=== PATIENT | female | born 1955 | race Caucasian/White ===

== ENCOUNTER 2017-05-02 12:11 | Inpatient (IN) | payer BC, MEDICARE ==
[~2017-05-02] VITALS: Ht 154.9 cm; Wt 103.6 kg
[~2017-05-02 12:11] MED LIST: FLUT1DIS5 IH; PARO10TA57 PO; PREG25CA PO
--- NOTE | 2017-05-02 12:14 | PHYS DOC ---
Past Medical History Past Medical History: Asthma, Fibromyalgia, Other Additional Past Medical Histor: Lupus Past Surgical History: Other Additional Past Surgical Histo: Fibroid tumors Alcohol Use: None Drug Use: None Adult General Chief Complaint Chief Complaint: ABDOMINAL PAIN HPI HPI Patient is a 61 year old female presenting to the emergency department for evaluation of abdominal pain that started 2 nights ago while she was getting her sleep study. Pain is mostly in her upper abdomen and associated with nausea and vomiting and she has not been able to hold anything down for the past several days. Patient denies any fevers chills dysuria hematuria diarrhea constipation dysuria or hematuria. She denies any prior abdominal surgeries. She says that she has known gallbladder disease but drinks alcohol infrequently. She is in no acute distress with normal vital signs. Review of Systems Review of Systems Constitutional: Denies fever or chills [] Eyes: Denies change in visual acuity, redness, or eye pain [] HENT: Denies nasal congestion or sore throat [] Respiratory: Denies cough or shortness of breath [] Cardiovascular: No additional information not addressed in HPI [] GI: + abdominal pain, nausea, vomiting. No bloody stools or diarrhea [] : Denies dysuria or hematuria [] Musculoskeletal: Denies back pain or joint pain [] Integument: Denies rash or skin lesions [] Neurologic: Denies headache, focal weakness or sensory changes [] Current Medications Current Medications Current Medications Medications (Trade) Dose Ordered Sig/Soumya Start Time Stop Time Status Last Admin Dose Admin Albuterol/ Ipratropium (Duoneb) 3 ml 1X ONCE 05/02/17 13:15 05/02/17 13:16 DC 05/02/17 13:17 3 ML Fentanyl Citrate (Fentanyl 2ml Vial) 100 mcg 1X ONCE 05/02/17 13:00 05/02/17 13:01 DC Info (Do NOT chart on this entry -- for MONITORING) 1 each PRN DAILY PRN 05/02/17 13:15 05/04/17 13:14 Iohexol (Omnipaque 300 Mg/ml) 75 ml 1X ONCE 05/02/17 13:15 05/02/17 13:16 DC Morphine Sulfate 5 mg 1X ONCE 05/02/17 12:45 05/02/17 12:45 DC Ondansetron HCl (Zofran) 8 mg 1X ONCE 05/02/17 12:45 8/3/17 12:46 DC 05/02/17 12:54 8 MG Sodium Chloride 1,000 ml @ 1,000 mls/hr 1X ONCE 05/02/17 12:45 05/02/17 13:44 05/02/17 12:54 1,000 MLS/HR Allergies Allergies Allergies Coded Allergies Type Severity Reaction Last Updated Verified codeine Allergy Unknown gi upset 05/02/17 Yes morphine Adverse Reaction Mild NAUSEA 05/02/17 Yes Physical Exam Physical Exam Constitutional: Well developed, well nourished, no acute distress, non-toxic appearance. [] HENT: Normocephalic, atraumatic, bilateral external ears normal, oropharynx moist, no oral exudates, nose normal. [] Eyes: PERRLA, EOMI, conjunctiva normal, no discharge. [] Neck: Normal range of motion, no tenderness, supple, no stridor. [] Cardiovascular:Heart rate regular rhythm, no murmur [] Lungs & Thorax: Bilateral breath sounds clear to auscultation [] Abdomen: Bowel sounds normal, soft, + diffuse upper abdominal tenderness, no rebound or guarding, no masses, no pulsatile masses. [] Skin: Warm, dry, no erythema, no rash. [] Back: No tenderness, no CVA tenderness. [] Extremities: No tenderness, no cyanosis, no clubbing, ROM intact, no edema. [] Neurologic: Alert and oriented X 3, normal motor function, normal sensory function, no focal deficits noted. [] Current Patient Data Vital Signs Vital Signs Date Time Temp Pulse Resp B/P (MAP) Pulse Ox O2 Delivery O2 Flow Rate FiO2 05/02/17 13:20 95 Nasal Cannula 3.0 05/02/17 12:25 98.8 115 22 146/97 (113) 98.8 Lab Values Laboratory Tests Test 05/02/17 12:30 05/02/17 12:32 Urine Collection Type Unknown Urine Color Alisha Urine Clarity Clear Urine pH 5.5 Urine Specific [place] >=1.030 Urine Protein 30 mg/dL (NEG-TRACE) Urine Glucose (UA) Negative mg/dL (NEG) Urine Ketones (Stick) Negative mg/dL (NEG) Urine Blood Small (NEG) Urine Nitrite Negative (NEG) Urine Bilirubin Small (NEG) Urine Urobilinogen Dipstick 0.2 mg/dL (0.2 mg/dL) Urine Leukocyte Esterase Negative (NEG) Urine RBC 3-5 /HPF (0-2) Urine WBC 0 /HPF (0-4) Urine Squamous Epithelial Cells Mod /LPF Urine Bacteria Few /HPF (0-FEW) Urine Mucus Marked /LPF Urine Opiates Screen Neg (NEG) Urine Methadone Screen Neg (NEG) Urine Barbiturates Neg (NEG) Urine Phencyclidine Screen Neg (NEG) Urine Amphetamine/Methamphetamine Neg (NEG) Urine Benzodiazepines Screen Neg (NEG) Urine Cocaine Screen Neg (NEG) Urine Cannabinoids Screen Neg (NEG) Urine Ethyl Alcohol Neg (NEG) White Blood Count 14.0 x10^3/uL (4.0-11.0) H Red Blood Count 6.02 x10^6/uL (3.50-5.40) H Hemoglobin 18.3 g/dL (12.0-15.5) H Hematocrit 53.7 % (36.0-47.0) H Mean Corpuscular Volume 89 fL (79-100) Mean Corpuscular Hemoglobin 31 pg (25-35) Mean Corpuscular Hemoglobin Concent 34 g/dL (31-37) Red Cell Distribution Width 13.6 % (11.5-14.5) Platelet Count 253 x10^3/uL (140-400) Neutrophils (%) (Auto) 80 % (31-73) H Lymphocytes (%) (Auto) 12 % (24-48) L Monocytes (%) (Auto) 8 % (0-9) Eosinophils (%) (Auto) 1 % (0-3) Basophils (%) (Auto) 0 % (0-3) Neutrophils # (Auto) 11.1 x10^3uL (1.8-7.7) H Lymphocytes # (Auto) 1.6 x10^3/uL (1.0-4.8) Monocytes # (Auto) 1.1 x10^3/uL (0.0-1.1) Eosinophils # (Auto) 0.1 x10^3/uL (0.0-0.7) Basophils # (Auto) 0.1 x10^3/uL (0.0-0.2) Prothrombin Time 13.2 SEC (11.7-14.0) Prothrombin Time INR 1.1 (0.8-1.1) PTT 26 SEC (24-38) Sodium Level 140 mmol/L (136-145) Potassium Level 3.9 mmol/L (3.5-5.1) Chloride Level 102 mmol/L (98-107) Carbon Dioxide Level 29 mmol/L (21-32) Anion Gap 9 (6-14) Blood Urea Nitrogen 12 mg/dL (7-20) Creatinine 0.8 mg/dL (0.6-1.0) Estimated GFR (Cockcroft-Gault) 72.7 BUN/Creatinine Ratio 15 (6-20) Glucose Level 171 mg/dL (70-99) H Calcium Level 9.3 mg/dL (8.5-10.1) Magnesium Level 1.9 mg/dL (1.8-2.4) Total Bilirubin 0.5 mg/dL (0.2-1.0) Aspartate Amino Transferase (AST) 12 U/L (15-37) L Alanine Aminotransferase (ALT) 22 U/L (14-59) Alkaline Phosphatase 77 U/L (46-116) Creatine Kinase 46 U/L (26-192) Troponin I Quantitative < 0.017 ng/mL (0.000-0.055) NY-Cjc-S-Type Natriuretic Peptide 115 pg/mL (0-124) Total Protein 7.6 g/dL (6.4-8.2) Albumin 3.5 g/dL (3.4-5.0) Albumin/Globulin Ratio 0.9 (1.0-1.7) L Lipase 1273 U/L (73-393) H Ethyl Alcohol Level < 10 mg/dL (0-10) Laboratory Tests 05/02/17 12:32 Laboratory Tests 05/02/17 12:32 EKG EKG Sinus tachycardia at 102 beats per minutes with normal axis no obvious ST elevation or depression and normal T waves. Radiology/Procedures Radiology/Procedures [] Course & Med Decision Making Course & Med Decision Making Patient with pancreatitis on workup which is consistent with her clinical exam. She has a CT pending at this point but she may need her gallbladder taken out but will defer imaging results. Based off how dehydrated she is not tolerating by mouth well and she will be admitted for further observation and treatment. Dragon Disclaimer Dragon Disclaimer This electronic medical record was generated, in whole or in part, using a voice recognition dictation system. Departure Departure Impression: Primary Impression: Pancreatitis Additional Impressions: Dehydration Leukocytosis Disposition: 09 ADMITTED INPATIENT Admitting Physician: Zaria Disla Condition: STABLE Referrals: NON,STAFF (PCP) Problem Qualifiers Primary Impression: Pancreatitis Chronicity: acute Pancreatitis type: biliary Acute pancreatitis complication: unspecified Qualified Codes: K85.10 - Biliary acute pancreatitis without necrosis or infection TAVO TRIMBLE DO May 02, 2017 12:14
[2017-05-02] MEDS ORDERED: ONDANSETRON PF 4 MG/2 ML VIAL. IV ONE (12:45)
[2017-05-02] MEDS ORDERED: MORPHINE SULFATE 10 MG/ML VIAL. IV ONE (12:45)
[2017-05-02] MEDS ORDERED: IV NORMAL SALINE 1000ML BAG 1,000 ML IV ONE (12:45)
[2017-05-02 12:51] LABS: BASO # 0.1 x10^3/uL (0.0-0.2); BASO % 0 % (0-3); EOS % 1 % (0-3); HEMATOCRIT 53.7 % (36.0-47.0); HEMOGLOBIN 18.3 g/dL (12.0-15.5); LYMPH # 1.6 x10^3/uL (1.0-4.8); LYMPH % 12 % (24-48); MEAN CORPUSCULAR HEMOGLOBIN 31 pg (25-35); MEAN CORPUSCULAR HGB CONC 34 g/dL (31-37); MEAN CORPUSCULAR VOLUME 89 fL (79-100); MONO % 8 % (0-9); NEUT % 80 % (31-73); PLATELET COUNT 253 x10^3/uL (140-400); RED BLOOD COUNT 6.02 x10^6/uL (3.50-5.40); RED CELL DISTRIBUTION WIDTH 13.6 % (11.5-14.5)
[2017-05-02 12:51] LABS: BILIRUBIN,URINE SMALL (NEG); GLUCOSE,URINE NEGATIVE (NEG); NITRITE,URINE NEGATIVE (NEG); PH,URINE 5.5; PROTEIN,URINE 30 mg/dL (NEG-TRACE); UROBILINOGEN,URINE 0.2 mg/dL (0.2 mg/dL)
[2017-05-02 12:52] LABS: BARBITURATES NEG (NEG); BENZODIAZEPINES NEG (NEG); CANNABINOIDS NEG (NEG); COCAINE NEG (NEG); METHADONE NEG (NEG); OPIATES NEG (NEG); PHENCYCLIDINE NEG (NEG)
[2017-05-02] MEDS: fentaNYL PF VIAL 100 MCG/2 ML VIAL IV ONE ×2 (12:54→13:00)
[2017-05-02 13:02] LABS: CALCIUM 9.3 mg/dL (8.5-10.1); CREATININE 0.8 mg/dL (0.6-1.0); GFR 72.7; POTASSIUM 3.9 mmol/L (3.5-5.1)
[2017-05-02 13:08] LABS: BACTERIA,URINE FEW /HPF (0-FEW); SQUAMOUS EPITHELIAL CELL,UR MOD /LPF; WBC,URINE 0 /HPF (0-4)
[2017-05-02 13:09] LABS: ALBUMIN 3.5 g/dL (3.4-5.0); ALBUMIN/GLOBULIN RATIO 0.9 (1.0-1.7); INR 1.1 (0.8-1.1); MAGNESIUM 1.9 mg/dL (1.8-2.4); PROTHROMBIN TIME PATIENT 13.2 SEC (11.7-14.0); TOTAL BILIRUBIN 0.5 mg/dL (0.2-1.0); TOTAL PROTEIN 7.6 g/dL (6.4-8.2)
[2017-05-02] MEDS ORDERED: IPRATRPIUM/ALBUTEROL 0.5/2.5MG 3 ML NEBU. NEB ONE (13:15)
[2017-05-02] MEDS ORDERED: CONTRAST GIVEN MC PRN (13:15)
[2017-05-02] MEDS ORDERED: IOHEXOL 300 MG/ML 75 ML VIAL IV ONE (13:15)
--- NOTE | 2017-05-02 13:43 | ACF ---
Admit Criteria Forms Admit Criteria Forms Admit Criteria Forms PANCREATITIS Clinical Indications for Admission to Inpatient Care (Place 'X' for any and all applicable criteria): Admission is indicated for 1 or more of the following (1)(2)(3)(4): [X ]I. Acute pancreatitis[A] as indicated by 2 or MORE of the following: [ X]a) Abdominal pain (eg, epigastric, left upper quadrant) [X ]b) Serum amylase or serum lipase greater than 3 times the upper limit of normal [ ]c) Characteristic findings from abdominal imaging (eg, pancreatic inflammation, pancreatic necrosis, peripancreatic fluid collection)[B] [ ]II. Pancreatitis (acute or chronic ) requiring inpatient care as indicated by 1 or more of the following [ ]a) Inability to maintain oral hydration Hypoxemia [ ]b) Evidence of infection (eg, fever, peripancreatic abscess) [ ]c) Severe pain requiring acute inpatient management [ ]d) Hemodynamic instability [ ]e) Hypoxemia [ ]f) Acute renal failure [ ]g) Severe electrolyte abnormalities Extended stay beyond goal length of stay may be needed for (1)(11) [ ]a) Severe acute pancreatitis (10)(19) [ ]b) Persistent symptoms, ascites, or pleural effusion [ ]c) Abdominal compartment syndrome (10) [ ]d) Late complications [ ]e) Gallstones in gallbladder [ ]f) Acute renal failure (27) The original [employer] content created by [employer] has been revised. The portions of the content which have been revised are identified through the use of italic text or in bold,and [facility] has neither reviewed nor approved the modified material.All other unmodified content is copyright [employer]. Please see references footnoted in the original [employer] edition 2016 RAIZA TURNER May 02, 2017 13:43
--- NOTE | 2017-05-02 14:21 | EKG ---
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
--- NOTE | 2017-05-02 14:24 | RAD ---
CT of the abdomen and pelvis with contrast, 05/02/2017: History: Upper abdominal pain, gallstones Multidetector CT imaging was performed following an IV bolus injection of iodinated contrast material. No oral contrast material was administered for this study. Numerous dense gallstones are present within the gallbladder. The gallbladder is not distended. No gallbladder wall thickening or pericholecystic edema is seen. There is no evidence of a hepatic mass or bile duct dilatation. There are multiple small calcifications in the posterior aspect of the pancreatic head. No pancreatic mass is seen. There is mild streaky increased density in the peripancreatic fat at the level the pancreatic tail, suggesting inflammation. The spleen is of normal size. No renal abnormality is detected. There is a 3.5 cm left adrenal mass. It demonstrates an internal CT number of 56 Hounsfield units on these postcontrast scans. The right adrenal gland is unremarkable. Mild aortoiliac calcific plaquing is present without evidence of aneurysm. No abdominal or pelvic adenopathy is seen. The uterus is unremarkable. The bowel loops are not dilated. A couple of small sigmoid diverticula are seen without evidence of paracolic inflammation. The appendix is visualized and shows no abnormality. No free fluid or free air is evident in the abdomen or pelvis. IMPRESSION: 1. Mild peripancreatic inflammation at the level of the pancreatic tail suggesting focal pancreatitis. 2. Pancreatic head calcifications probably due to prior pancreatitis. 3. Cholelithiasis. 4. 3.5 cm left adrenal mass. In the absence of prior studies to confirm stability, noncontrast CT follow-up or adrenal protocol MR scanning may be useful for further evaluation. PQRS Compliance Statement: One or more of the following individualized dose reduction techniques were utilized for this examination: 1. Automated exposure control 2. Adjustment of the mA and/or kV according to patient size 3. Use of iterative reconstruction technique
[2017-05-02] MEDS ORDERED: hydrALAZINE 20 MG/ML VIAL. IVP PRN (15:00)
[2017-05-02] MEDS ORDERED: ACETAMINOPHEN 325 MG TABLET. PO PRN (15:00)
[2017-05-02] MEDS ORDERED: ONDANSETRON PF 4 MG/2 ML VIAL. IV PRN (15:00)
[2017-05-02] MEDS ORDERED: DOCUSATE SODIUM 100 MG CAPSULE. PO PRN (15:00)
[2017-05-02] MEDS ORDERED: fentaNYL PF VIAL 100 MCG/2 ML VIAL IV PRN ×2 (15:00→18:30)
[2017-05-02] MEDS ORDERED: ALBUTEROL SULFATE 2.5 MG/3 ML NEBU. NEB PRN (15:00)
--- NOTE | 2017-05-02 15:04 | PDOC1 ---
History and Physical Date of Admission Date of Admission 05/02/17 Identification/Chief Complaint Chief Complaint abd pain Problems: Source Source: Chart review, Patient History of Present Illness History of Present Illness HPI HPI Patient is a 61 year old female presenting to the emergency department for evaluation of abdominal pain for 3 days. Pt knows she has cholelithiasis before, supposed to do sx but always postponed. THe pain started 2 nights ago when she got her sleep study for SALVATORE, epigastric area, constant, 8/10, with N/V, non bloody or greenish. denies fever, chills, chest pain, diarrhea. She has copd, smoker, feels more cough with sputum recently, and more sob. no home o2. Past Medical History Past Medical History copd salvatore Past Surgical History Past Surgical History Fibroid tumors Family History Family History: Hypertension Social History Smoke: 1 pack per day ALCOHOL: social Drugs: None Current Problem List Problem List Problems Medical Problems: (1) Dehydration Status: Acute (2) Leukocytosis Status: Acute Current Medications Current Medications Current Medications Medications (Trade) Dose Ordered Sig/Soumya Start Time Stop Time Status Last Admin Dose Admin Albuterol/ Ipratropium (Duoneb) 3 ml 1X ONCE 05/02/17 13:15 05/02/17 13:16 DC 05/02/17 13:17 3 ML Fentanyl Citrate (Fentanyl 2ml Vial) 100 mcg 1X ONCE 05/02/17 13:00 05/02/17 13:01 DC Info (Do NOT chart on this entry -- for MONITORING) 1 each PRN DAILY PRN 05/02/17 13:15 05/04/17 13:14 Iohexol (Omnipaque 300 Mg/ml) 75 ml 1X ONCE 05/02/17 13:15 05/02/17 13:16 DC 05/02/17 13:43 75 ML Morphine Sulfate 5 mg 1X ONCE 05/02/17 12:45 05/02/17 12:45 DC Ondansetron HCl (Zofran) 8 mg 1X ONCE 05/02/17 12:45 05/02/17 12:46 DC 05/02/17 12:54 8 MG Sodium Chloride 1,000 ml @ 1,000 mls/hr 1X ONCE 05/02/17 12:45 05/02/17 13:44 DC 05/02/17 12:54 1,000 MLS/HR Allergies Allergies Allergies Coded Allergies Type Severity Reaction Last Updated Verified codeine Allergy Unknown gi upset 05/02/17 Yes morphine Adverse Reaction Mild NAUSEA 05/02/17 Yes ROS Review of System CONSTITUTIONAL: No fever or chills EYES: No recent changes SKIN: No rash or itching CARDIOVASCULAR: No chest pain, syncope, palpitations, or edema RESPIRATORY: No SOB or cough GASTROINTESTINAL: No nausea, vomiting or abdominal pain NEUROLOGICAL: No headaches or weakness ENDOCRINE: No cold or heat intolerance GENITOURINARY: No urgency or frequency of urination MUSCULOSKELETAL: No back pain or joint pain LYMPHATICS: No enlarged lymph nodes PSYCHIATRIC: No anxiety or depression Physical Exam Physical Exam GEN.: No apparent distress. Alert and oriented. obese. HEENT: Head is normocephalic, atraumatic NECK: Supple. LUNGS: bl coarse bs with mild wheezing. HEART: RRR, S1, S2 present. Peripheral pulses intact ABDOMEN: Soft, Positive bowel sounds. obese, RUQ, epigastric area moderate tenderness, no guarding or rebound. EXTREMITIES: Without any cyanosis. NEUROLOGIC: Normal speech, normal tone PSYCHIATRIC: Normal affect, normal mood. SKIN: No ulcerations Vitals Vitals Vital Signs Date Time Temp Pulse Resp B/P (MAP) Pulse Ox O2 Delivery O2 Flow Rate FiO2 05/02/17 14:26 97 14 153/96 (115) 94 Nasal Cannula 2.0 05/02/17 12:25 98.8 98.8 Labs Labs Laboratory Tests Test 05/02/17 12:30 05/02/17 12:32 Urine Collection Type Unknown Urine Color Alisha Urine Clarity Clear Urine pH 5.5 Urine Specific [place] >=1.030 Urine Protein 30 mg/dL (NEG-TRACE) Urine Glucose (UA) Negative mg/dL (NEG) Urine Ketones (Stick) Negative mg/dL (NEG) Urine Blood Small (NEG) Urine Nitrite Negative (NEG) Urine Bilirubin Small (NEG) Urine Urobilinogen Dipstick 0.2 mg/dL (0.2 mg/dL) Urine Leukocyte Esterase Negative (NEG) Urine RBC 3-5 /HPF (0-2) Urine WBC 0 /HPF (0-4) Urine Squamous Epithelial Cells Mod /LPF Urine Bacteria Few /HPF (0-FEW) Urine Mucus Marked /LPF Urine Opiates Screen Neg (NEG) Urine Methadone Screen Neg (NEG) Urine Barbiturates Neg (NEG) Urine Phencyclidine Screen Neg (NEG) Urine Amphetamine/Methamphetamine Neg (NEG) Urine Benzodiazepines Screen Neg (NEG) Urine Cocaine Screen Neg (NEG) Urine Cannabinoids Screen Neg (NEG) Urine Ethyl Alcohol Neg (NEG) White Blood Count 14.0 x10^3/uL (4.0-11.0) Red Blood Count 6.02 x10^6/uL (3.50-5.40) Hemoglobin 18.3 g/dL (12.0-15.5) Hematocrit 53.7 % (36.0-47.0) Mean Corpuscular Volume 89 fL (79-100) Mean Corpuscular Hemoglobin 31 pg (25-35) Mean Corpuscular Hemoglobin Concent 34 g/dL (31-37) Red Cell Distribution Width 13.6 % (11.5-14.5) Platelet Count 253 x10^3/uL (140-400) Neutrophils (%) (Auto) 80 % (31-73) Lymphocytes (%) (Auto) 12 % (24-48) Monocytes (%) (Auto) 8 % (0-9) Eosinophils (%) (Auto) 1 % (0-3) Basophils (%) (Auto) 0 % (0-3) Neutrophils # (Auto) 11.1 x10^3uL (1.8-7.7) Lymphocytes # (Auto) 1.6 x10^3/uL (1.0-4.8) Monocytes # (Auto) 1.1 x10^3/uL (0.0-1.1) Eosinophils # (Auto) 0.1 x10^3/uL (0.0-0.7) Basophils # (Auto) 0.1 x10^3/uL (0.0-0.2) Prothrombin Time 13.2 SEC (11.7-14.0) Prothromb Time International Ratio 1.1 (0.8-1.1) Activated Partial Thromboplast Time 26 SEC (24-38) Sodium Level 140 mmol/L (136-145) Potassium Level 3.9 mmol/L (3.5-5.1) Chloride Level 102 mmol/L (98-107) Carbon Dioxide Level 29 mmol/L (21-32) Anion Gap 9 (6-14) Blood Urea Nitrogen 12 mg/dL (7-20) Creatinine 0.8 mg/dL (0.6-1.0) Estimated GFR (Cockcroft-Gault) 72.7 BUN/Creatinine Ratio 15 (6-20) Glucose Level 171 mg/dL (70-99) Calcium Level 9.3 mg/dL (8.5-10.1) Magnesium Level 1.9 mg/dL (1.8-2.4) Total Bilirubin 0.5 mg/dL (0.2-1.0) Aspartate Amino Transf (AST/SGOT) 12 U/L (15-37) Alanine Aminotransferase (ALT/SGPT) 22 U/L (14-59) Alkaline Phosphatase 77 U/L (46-116) Creatine Kinase 46 U/L (26-192) Troponin I Quantitative < 0.017 ng/mL (0.000-0.055) QI-Flc-U-Type Natriuretic Peptide 115 pg/mL (0-124) Total Protein 7.6 g/dL (6.4-8.2) Albumin 3.5 g/dL (3.4-5.0) Albumin/Globulin Ratio 0.9 (1.0-1.7) Lipase 1273 U/L (73-393) Ethyl Alcohol Level < 10 mg/dL (0-10) Laboratory Tests Test 05/02/17 12:30 05/02/17 12:32 Urine Collection Type Unknown Urine Color Alisha Urine Clarity Clear Urine pH 5.5 Urine Specific [place] >=1.030 Urine Protein 30 mg/dL (NEG-TRACE) Urine Glucose (UA) Negative mg/dL (NEG) Urine Ketones (Stick) Negative mg/dL (NEG) Urine Blood Small (NEG) Urine Nitrite Negative (NEG) Urine Bilirubin Small (NEG) Urine Urobilinogen Dipstick 0.2 mg/dL (0.2 mg/dL) Urine Leukocyte Esterase Negative (NEG) Urine RBC 3-5 /HPF (0-2) Urine WBC 0 /HPF (0-4) Urine Squamous Epithelial Cells Mod /LPF Urine Bacteria Few /HPF (0-FEW) Urine Mucus Marked /LPF Urine Opiates Screen Neg (NEG) Urine Methadone Screen Neg (NEG) Urine Barbiturates Neg (NEG) Urine Phencyclidine Screen Neg (NEG) Urine Amphetamine/Methamphetamine Neg (NEG) Urine Benzodiazepines Screen Neg (NEG) Urine Cocaine Screen Neg (NEG) Urine Cannabinoids Screen Neg (NEG) Urine Ethyl Alcohol Neg (NEG) White Blood Count 14.0 x10^3/uL (4.0-11.0) Red Blood Count 6.02 x10^6/uL (3.50-5.40) Hemoglobin 18.3 g/dL (12.0-15.5) Hematocrit 53.7 % (36.0-47.0) Mean Corpuscular Volume 89 fL (79-100) Mean Corpuscular Hemoglobin 31 pg (25-35) Mean Corpuscular Hemoglobin Concent 34 g/dL (31-37) Red Cell Distribution Width 13.6 % (11.5-14.5) Platelet Count 253 x10^3/uL (140-400) Neutrophils (%) (Auto) 80 % (31-73) Lymphocytes (%) (Auto) 12 % (24-48) Monocytes (%) (Auto) 8 % (0-9) Eosinophils (%) (Auto) 1 % (0-3) Basophils (%) (Auto) 0 % (0-3) Neutrophils # (Auto) 11.1 x10^3uL (1.8-7.7) Lymphocytes # (Auto) 1.6 x10^3/uL (1.0-4.8) Monocytes # (Auto) 1.1 x10^3/uL (0.0-1.1) Eosinophils # (Auto) 0.1 x10^3/uL (0.0-0.7) Basophils # (Auto) 0.1 x10^3/uL (0.0-0.2) Prothrombin Time 13.2 SEC (11.7-14.0) Prothromb Time International Ratio 1.1 (0.8-1.1) Activated Partial Thromboplast Time 26 SEC (24-38) Sodium Level 140 mmol/L (136-145) Potassium Level 3.9 mmol/L (3.5-5.1) Chloride Level 102 mmol/L (98-107) Carbon Dioxide Level 29 mmol/L (21-32) Anion Gap 9 (6-14) Blood Urea Nitrogen 12 mg/dL (7-20) Creatinine 0.8 mg/dL (0.6-1.0) Estimated GFR (Cockcroft-Gault) 72.7 BUN/Creatinine Ratio 15 (6-20) Glucose Level 171 mg/dL (70-99) Calcium Level 9.3 mg/dL (8.5-10.1) Magnesium Level 1.9 mg/dL (1.8-2.4) Total Bilirubin 0.5 mg/dL (0.2-1.0) Aspartate Amino Transf (AST/SGOT) 12 U/L (15-37) Alanine Aminotransferase (ALT/SGPT) 22 U/L (14-59) Alkaline Phosphatase 77 U/L (46-116) Creatine Kinase 46 U/L (26-192) Troponin I Quantitative < 0.017 ng/mL (0.000-0.055) NA-Rnv-B-Type Natriuretic Peptide 115 pg/mL (0-124) Total Protein 7.6 g/dL (6.4-8.2) Albumin 3.5 g/dL (3.4-5.0) Albumin/Globulin Ratio 0.9 (1.0-1.7) Lipase 1273 U/L (73-393) Ethyl Alcohol Level < 10 mg/dL (0-10) VTE Prophylaxis Ordered VTE Prophylaxis Devices: Yes VTE Pharmacological Prophylaxi: Yes Assessment/Plan Assessment/Plan abd pain with acute pancreatitis 2/2 cholelithiasis likely cholelithiasis copd exacerbatin fibromyalgia morbid obesity leukocytosis with dehydration acute resp failure with copd, salvatore 3.5cm left adrenal mass on ct plan; gi , sx , pulm consult npo ivf ok to take po meds cont home meds duoneb, albuterol prn, doxy bid, NC as needed. lipase daily may need sx eventually pain control dvt, gi ppx SULAIMAN RODRIGUEZ MD May 02, 2017 15:04
[2017-05-02 15:15] VITALS: BP 129/72
[2017-05-02] MEDS ORDERED: PREGABALIN 25 MG CAPSULE PO SCH (15:15)
[2017-05-02] MEDS ORDERED: HYDR-2766 PO (15:26)
[2017-05-02] MEDS: IV NORMAL SALINE 1000ML BAG 1,000 ML IV SCH (15:31)
[2017-05-02] MEDS: IPRATRPIUM/ALBUTEROL 0.5/2.5MG 3 ML NEBU. NEB SCH ×2 (15:58→19:16)
--- NOTE | 2017-05-02 17:19 | PDOC2 ---
CONSULT Date of Consult Date of Consult DATE: 05/02/17 TIME: 17:12 Reason for Consult Reason for Consult: Pancreatitis Referring Physician Referring Physician: Naif Identification/Chief Complaint Chief Complaint Abdominal pain Problems: Source Source: Patient History of Present Illness Reason for Visit: 61 yo female with 3 days of abdominal pain with nausea, worse after eating. No vomiting. Has had a similar episode in the past but this is worse. Past Medical History Cardiovascular: HTN Pulmonary: COPD GI: GERD Heme/Onc: No pertinent hx Hepatobiliary: Cholelithiasis Psych: No pertinent hx Musculoskeletal: low back pain Rheumatologic: No pertinent hx Infectious disease: No pertinent hx ENT: No pertinent hx Renal/: No pertinent hx Endocrine: No pertinent hx Dermatology: No pertinent hx Past Surgical History Past Surgical History: No pertinent history Family History Family History: No Significant, Hypertension Social History 1 pack per day ALCOHOL: social Drugs: None Current Problem List Problem List Problems Medical Problems: (1) Dehydration Status: Acute (2) Leukocytosis Status: Acute Current Medications Current Medications Current Medications Ondansetron HCl (Zofran) 8 mg 1X ONCE IV Last administered on 05/02/17 12:54; Start 05/02/17 at 12:45; Stop 05/02/17 at 12:46; Status DC Sodium Chloride 1,000 ml @ 1,000 mls/hr 1X ONCE IV Last administered on 12:54; Start 05/02/17 at 12:45; Stop 05/02/17 at 13:44; Status DC Morphine Sulfate 5 mg 1X ONCE IV ; Start 05/02/17 at 12:45; Stop 05/02/17 at 12: 45; Status DC Albuterol/ Ipratropium (Duoneb) 3 ml 1X ONCE NEB Last administered on 13:17; Start 05/02/17 at 13:15; Stop 05/02/17 at 13:16; Status DC Fentanyl Citrate (Fentanyl 2ml Vial) 100 mcg 1X ONCE IV ; Start 05/02/17 at 13: 00; Stop 05/02/17 at 13:01; Status DC Iohexol (Omnipaque 300 Mg/ml) 75 ml 1X ONCE IV Last administered on 05/02/17 13:43; Start 05/02/17 at 13:15; Stop 05/02/17 at 13:16; Status DC Info (Do NOT chart on this entry -- for MONITORING) 1 each PRN DAILY PRN MC SEE COMMENTS; Start 05/02/17 at 13:15; Stop 05/04/17 at 13:14 Paroxetine HCl (Paxil) 10 mg DAILY PO ; Start 05/02/17 at 16:00 Pregabalin (Lyrica) 25 mg TID PO ; Start 05/02/17 at 15:15 Acetaminophen (Tylenol) 650 mg PRN Q6HRS PRN PO FEVER; Start 05/02/17 at 15:00 Ondansetron HCl (Zofran) 4 mg PRN Q6HRS PRN IV NAUSEA/VOMITING Last administered on 05/02/17 15:31; Start 05/02/17 at 15:00 Hydralazine HCl (Apresoline) 10 mg PRN Q4HRS PRN IVP ELEVATED BP, SEE COMMENTS ; Start 05/02/17 at 15:00 Docusate Sodium (Colace) 100 mg PRN DAILY PRN PO CONSTIPATION; Start 05/02/17 at 15:00 Fentanyl Citrate (Fentanyl 2ml Vial) 50 mcg PRN Q2HR PRN IV PAIN Last administered on 05/02/17 15:31; Start 05/02/17 at 15:00 Sodium Chloride 1,000 ml @ 150 mls/hr Q6H40M IV Last administered on 05/02/17 15:31; Start 05/02/17 at 15:00 Albuterol/ Ipratropium (Duoneb) 3 ml RTQID NEB Last administered on 05/02/17 15 :58; Start 05/02/17 at 16:00 Albuterol Sulfate (Ventolin Neb Soln) 2.5 mg PRN Q2HR PRN NEB SHORTNESS OF BREATH; Start 05/02/17 at 15:00 Guaifenesin (Mucinex) 600 mg BID PO ; Start 05/02/17 at 21:00 Doxycycline Hyclate 100 mg/ Dextrose 100 ml @ 50 mls/hr Q12HR IV ; Start at 16:00 Heparin Sodium (Porcine) (Heparin Sq) 5,000 unit Q8HRS SQ ; Start 05/02/17 at 15: 15 Famotidine (Pepcid) 20 mg QHS IVP ; Start 05/02/17 at 21:00 Active Scripts Active Reported Hydrocodone-Apap 10-325 (Hydrocodone Bit/Acetaminophen) 1 Each Tablet 1 Tab PO PRN Q6HRS PRN Advair 500-50 Diskus (Fluticasone/Salmeterol) 1 Each Disk.w.dev 1 Each IH Lyrica (Pregabalin) 25 Mg Capsule 25 Mg PO Paxil (Paroxetine Hcl) 10 Mg Tablet 10 Mg PO Allergies Allergies: Coded Allergies: codeine (Verified Allergy, Unknown, gi upset, 05/02/17) morphine (Verified Adverse Reaction, Mild, NAUSEA, 05/02/17) ROS Gastrointestinal: Yes Nausea, Yes Abdominal Pain Physical Exam General: Alert, Oriented X3, Cooperative, moderate distress HEENT: Atraumatic, PERRLA, EOMI Lungs: Clear to auscultation, Normal air movement Heart: Regular rate, No murmurs Abdomen: Normal bowel sounds, Soft, Other (TTP Epigastrium) Extremities: No edema Skin: No significant lesion Neuro: Normal speech Psych/Mental Status: Mental status NL Vitals VITALS Vital Signs Date Time Temp Pulse Resp B/P (MAP) Pulse Ox O2 Delivery O2 Flow Rate FiO2 05/02/17 15:59 86 Room Air 05/02/17 15:31 3.0 05/02/17 15:15 98.4 81 20 129/72 (91) 98.4 Labs Labs Laboratory Tests Test 05/02/17 12:30 05/02/17 12:32 Urine Collection Type Unknown Urine Color Alisha Urine Clarity Clear Urine pH 5.5 Urine Specific Tabiona >=1.030 Urine Protein 30 mg/dL (NEG-TRACE) Urine Glucose (UA) Negative mg/dL (NEG) Urine Ketones (Stick) Negative mg/dL (NEG) Urine Blood Small (NEG) Urine Nitrite Negative (NEG) Urine Bilirubin Small (NEG) Urine Urobilinogen Dipstick 0.2 mg/dL (0.2 mg/dL) Urine Leukocyte Esterase Negative (NEG) Urine RBC 3-5 /HPF (0-2) Urine WBC 0 /HPF (0-4) Urine Squamous Epithelial Cells Mod /LPF Urine Bacteria Few /HPF (0-FEW) Urine Mucus Marked /LPF Urine Opiates Screen Neg (NEG) Urine Methadone Screen Neg (NEG) Urine Barbiturates Neg (NEG) Urine Phencyclidine Screen Neg (NEG) Urine Amphetamine/Methamphetamine Neg (NEG) Urine Benzodiazepines Screen Neg (NEG) Urine Cocaine Screen Neg (NEG) Urine Cannabinoids Screen Neg (NEG) Urine Ethyl Alcohol Neg (NEG) White Blood Count 14.0 x10^3/uL (4.0-11.0) Red Blood Count 6.02 x10^6/uL (3.50-5.40) Hemoglobin 18.3 g/dL (12.0-15.5) Hematocrit 53.7 % (36.0-47.0) Mean Corpuscular Volume 89 fL (79-100) Mean Corpuscular Hemoglobin 31 pg (25-35) Mean Corpuscular Hemoglobin Concent 34 g/dL (31-37) Red Cell Distribution Width 13.6 % (11.5-14.5) Platelet Count 253 x10^3/uL (140-400) Neutrophils (%) (Auto) 80 % (31-73) Lymphocytes (%) (Auto) 12 % (24-48) Monocytes (%) (Auto) 8 % (0-9) Eosinophils (%) (Auto) 1 % (0-3) Basophils (%) (Auto) 0 % (0-3) Neutrophils # (Auto) 11.1 x10^3uL (1.8-7.7) Lymphocytes # (Auto) 1.6 x10^3/uL (1.0-4.8) Monocytes # (Auto) 1.1 x10^3/uL (0.0-1.1) Eosinophils # (Auto) 0.1 x10^3/uL (0.0-0.7) Basophils # (Auto) 0.1 x10^3/uL (0.0-0.2) Prothrombin Time 13.2 SEC (11.7-14.0) Prothromb Time International Ratio 1.1 (0.8-1.1) Activated Partial Thromboplast Time 26 SEC (24-38) Sodium Level 140 mmol/L (136-145) Potassium Level 3.9 mmol/L (3.5-5.1) Chloride Level 102 mmol/L (98-107) Carbon Dioxide Level 29 mmol/L (21-32) Anion Gap 9 (6-14) Blood Urea Nitrogen 12 mg/dL (7-20) Creatinine 0.8 mg/dL (0.6-1.0) Estimated GFR (Cockcroft-Gault) 72.7 BUN/Creatinine Ratio 15 (6-20) Glucose Level 171 mg/dL (70-99) Calcium Level 9.3 mg/dL (8.5-10.1) Magnesium Level 1.9 mg/dL (1.8-2.4) Total Bilirubin 0.5 mg/dL (0.2-1.0) Aspartate Amino Transf (AST/SGOT) 12 U/L (15-37) Alanine Aminotransferase (ALT/SGPT) 22 U/L (14-59) Alkaline Phosphatase 77 U/L (46-116) Creatine Kinase 46 U/L (26-192) Troponin I Quantitative < 0.017 ng/mL (0.000-0.055) XM-Slu-T-Type Natriuretic Peptide 115 pg/mL (0-124) Total Protein 7.6 g/dL (6.4-8.2) Albumin 3.5 g/dL (3.4-5.0) Albumin/Globulin Ratio 0.9 (1.0-1.7) Lipase 1273 U/L (73-393) Ethyl Alcohol Level < 10 mg/dL (0-10) Laboratory Tests Test 05/02/17 12:30 05/02/17 12:32 Urine Collection Type Unknown Urine Color Alisha Urine Clarity Clear Urine pH 5.5 Urine Specific Tabiona >=1.030 Urine Protein 30 mg/dL (NEG-TRACE) Urine Glucose (UA) Negative mg/dL (NEG) Urine Ketones (Stick) Negative mg/dL (NEG) Urine Blood Small (NEG) Urine Nitrite Negative (NEG) Urine Bilirubin Small (NEG) Urine Urobilinogen Dipstick 0.2 mg/dL (0.2 mg/dL) Urine Leukocyte Esterase Negative (NEG) Urine RBC 3-5 /HPF (0-2) Urine WBC 0 /HPF (0-4) Urine Squamous Epithelial Cells Mod /LPF Urine Bacteria Few /HPF (0-FEW) Urine Mucus Marked /LPF Urine Opiates Screen Neg (NEG) Urine Methadone Screen Neg (NEG) Urine Barbiturates Neg (NEG) Urine Phencyclidine Screen Neg (NEG) Urine Amphetamine/Methamphetamine Neg (NEG) Urine Benzodiazepines Screen Neg (NEG) Urine Cocaine Screen Neg (NEG) Urine Cannabinoids Screen Neg (NEG) Urine Ethyl Alcohol Neg (NEG) White Blood Count 14.0 x10^3/uL (4.0-11.0) Red Blood Count 6.02 x10^6/uL (3.50-5.40) Hemoglobin 18.3 g/dL (12.0-15.5) Hematocrit 53.7 % (36.0-47.0) Mean Corpuscular Volume 89 fL (79-100) Mean Corpuscular Hemoglobin 31 pg (25-35) Mean Corpuscular Hemoglobin Concent 34 g/dL (31-37) Red Cell Distribution Width 13.6 % (11.5-14.5) Platelet Count 253 x10^3/uL (140-400) Neutrophils (%) (Auto) 80 % (31-73) Lymphocytes (%) (Auto) 12 % (24-48) Monocytes (%) (Auto) 8 % (0-9) Eosinophils (%) (Auto) 1 % (0-3) Basophils (%) (Auto) 0 % (0-3) Neutrophils # (Auto) 11.1 x10^3uL (1.8-7.7) Lymphocytes # (Auto) 1.6 x10^3/uL (1.0-4.8) Monocytes # (Auto) 1.1 x10^3/uL (0.0-1.1) Eosinophils # (Auto) 0.1 x10^3/uL (0.0-0.7) Basophils # (Auto) 0.1 x10^3/uL (0.0-0.2) Prothrombin Time 13.2 SEC (11.7-14.0) Prothromb Time International Ratio 1.1 (0.8-1.1) Activated Partial Thromboplast Time 26 SEC (24-38) Sodium Level 140 mmol/L (136-145) Potassium Level 3.9 mmol/L (3.5-5.1) Chloride Level 102 mmol/L (98-107) Carbon Dioxide Level 29 mmol/L (21-32) Anion Gap 9 (6-14) Blood Urea Nitrogen 12 mg/dL (7-20) Creatinine 0.8 mg/dL (0.6-1.0) Estimated GFR (Cockcroft-Gault) 72.7 BUN/Creatinine Ratio 15 (6-20) Glucose Level 171 mg/dL (70-99) Calcium Level 9.3 mg/dL (8.5-10.1) Magnesium Level 1.9 mg/dL (1.8-2.4) Total Bilirubin 0.5 mg/dL (0.2-1.0) Aspartate Amino Transf (AST/SGOT) 12 U/L (15-37) Alanine Aminotransferase (ALT/SGPT) 22 U/L (14-59) Alkaline Phosphatase 77 U/L (46-116) Creatine Kinase 46 U/L (26-192) Troponin I Quantitative < 0.017 ng/mL (0.000-0.055) KD-Ebe-T-Type Natriuretic Peptide 115 pg/mL (0-124) Total Protein 7.6 g/dL (6.4-8.2) Albumin 3.5 g/dL (3.4-5.0) Albumin/Globulin Ratio 0.9 (1.0-1.7) Lipase 1273 U/L (73-393) Ethyl Alcohol Level < 10 mg/dL (0-10) Images Images CT shows gallstones and inflammation around the tail of the pancreas Assessment/Plan Assessment/Plan Pancreatitis, likely gallstone related Recommend conservative tx of pancreatitis until resolved the L/S Cholecystectomy F/U on labs tomorrow MELINA ALVES MD May 02, 2017 17:19
[2017-05-02] MEDS: PARoxetine 10 MG TABLET PO SCH (17:33)
[2017-05-02] MEDS: DOXYCYCLINE HYCLATE 100 MG in IV DEXTROSE 5% 100 ML IV SCH (17:34)
[2017-05-02] MEDS: HEPARIN PF for SUB-Q USE 5,000 UNIT/0.5 ML VIAL. SQ SCH ×2 (17:45→21:40)
--- NOTE | 2017-05-02 17:48 | PDOC2 ---
CONSULT Date of Consult Date of Consult DATE: 05/02/17 TIME: 17:47 Reason for Consult Reason for Consult: Abd pain/pancreatitis Past Medical History Cardiovascular: HTN Pulmonary: COPD GI: GERD Heme/Onc: No pertinent hx Hepatobiliary: Cholelithiasis Psych: No pertinent hx Musculoskeletal: low back pain Rheumatologic: No pertinent hx Infectious disease: No pertinent hx ENT: No pertinent hx Renal/: No pertinent hx Endocrine: No pertinent hx Dermatology: No pertinent hx Past Surgical History Past Surgical History: No pertinent history Family History Family History: No Significant, Hypertension Social History 1 pack per day ALCOHOL: social Drugs: None Current Problem List Problem List Problems Medical Problems: (1) Dehydration Status: Acute (2) Leukocytosis Status: Acute Current Medications Current Medications Current Medications Ondansetron HCl (Zofran) 8 mg 1X ONCE IV Last administered on 05/02/17 12:54; Start 05/02/17 at 12:45; Stop 05/02/17 at 12:46; Status DC Sodium Chloride 1,000 ml @ 1,000 mls/hr 1X ONCE IV Last administered on 12:54; Start 05/02/17 at 12:45; Stop 05/02/17 at 13:44; Status DC Morphine Sulfate 5 mg 1X ONCE IV ; Start 05/02/17 at 12:45; Stop 05/02/17 at 12: 45; Status DC Albuterol/ Ipratropium (Duoneb) 3 ml 1X ONCE NEB Last administered on 13:17; Start 05/02/17 at 13:15; Stop 05/02/17 at 13:16; Status DC Fentanyl Citrate (Fentanyl 2ml Vial) 100 mcg 1X ONCE IV ; Start 05/02/17 at 13: 00; Stop 05/02/17 at 13:01; Status DC Iohexol (Omnipaque 300 Mg/ml) 75 ml 1X ONCE IV Last administered on 05/02/17 13:43; Start 05/02/17 at 13:15; Stop 05/02/17 at 13:16; Status DC Info (Do NOT chart on this entry -- for MONITORING) 1 each PRN DAILY PRN MC SEE COMMENTS; Start 05/02/17 at 13:15; Stop 05/04/17 at 13:14 Paroxetine HCl (Paxil) 10 mg DAILY PO ; Start 05/02/17 at 16:00 Pregabalin (Lyrica) 25 mg TID PO ; Start 05/02/17 at 15:15; Stop 05/02/17 at 17:27 ; Status DC Acetaminophen (Tylenol) 650 mg PRN Q6HRS PRN PO FEVER; Start 05/02/17 at 15:00 Ondansetron HCl (Zofran) 4 mg PRN Q6HRS PRN IV NAUSEA/VOMITING Last administered on 05/02/17 15:31; Start 05/02/17 at 15:00 Hydralazine HCl (Apresoline) 10 mg PRN Q4HRS PRN IVP ELEVATED BP, SEE COMMENTS ; Start 05/02/17 at 15:00 Docusate Sodium (Colace) 100 mg PRN DAILY PRN PO CONSTIPATION; Start 05/02/17 at 15:00 Fentanyl Citrate (Fentanyl 2ml Vial) 50 mcg PRN Q2HR PRN IV PAIN Last administered on 05/02/17 15:31; Start 05/02/17 at 15:00 Sodium Chloride 1,000 ml @ 150 mls/hr Q6H40M IV Last administered on 05/02/17 15:31; Start 05/02/17 at 15:00 Albuterol/ Ipratropium (Duoneb) 3 ml RTQID NEB Last administered on 05/02/17 15 :58; Start 05/02/17 at 16:00 Albuterol Sulfate (Ventolin Neb Soln) 2.5 mg PRN Q2HR PRN NEB SHORTNESS OF BREATH; Start 05/02/17 at 15:00 Guaifenesin (Mucinex) 600 mg BID PO ; Start 05/02/17 at 21:00 Doxycycline Hyclate 100 mg/ Dextrose 100 ml @ 50 mls/hr Q12HR IV ; Start at 16:00 Heparin Sodium (Porcine) (Heparin Sq) 5,000 unit Q8HRS SQ ; Start 05/02/17 at 15: 15 Famotidine (Pepcid) 20 mg QHS IVP ; Start 05/02/17 at 21:00 Active Scripts Active Reported Hydrocodone-Apap 10-325 (Hydrocodone Bit/Acetaminophen) 1 Each Tablet 1 Tab PO PRN Q6HRS PRN Advair 500-50 Diskus (Fluticasone/Salmeterol) 1 Each Disk.w.dev 1 Each IH Paxil (Paroxetine Hcl) 10 Mg Tablet 10 Mg PO Allergies Allergies: Coded Allergies: codeine (Verified Allergy, Unknown, gi upset, 05/02/17) morphine (Verified Adverse Reaction, Mild, NAUSEA, 05/02/17) Vitals VITALS Vital Signs Date Time Temp Pulse Resp B/P (MAP) Pulse Ox O2 Delivery O2 Flow Rate FiO2 05/02/17 16:00 Nasal Cannula 3.0 05/02/17 15:59 86 05/02/17 15:15 98.4 81 20 129/72 (91) 98.4 Labs Labs Laboratory Tests Test 05/02/17 12:30 05/02/17 12:32 05/02/17 17:31 Urine Collection Type Unknown Urine Color Alisha Urine Clarity Clear Urine pH 5.5 Urine Specific Coulters >=1.030 Urine Protein 30 mg/dL (NEG-TRACE) Urine Glucose (UA) Negative mg/dL (NEG) Urine Ketones (Stick) Negative mg/dL (NEG) Urine Blood Small (NEG) Urine Nitrite Negative (NEG) Urine Bilirubin Small (NEG) Urine Urobilinogen Dipstick 0.2 mg/dL (0.2 mg/dL) Urine Leukocyte Esterase Negative (NEG) Urine RBC 3-5 /HPF (0-2) Urine WBC 0 /HPF (0-4) Urine Squamous Epithelial Cells Mod /LPF Urine Bacteria Few /HPF (0-FEW) Urine Mucus Marked /LPF Urine Opiates Screen Neg (NEG) Urine Methadone Screen Neg (NEG) Urine Barbiturates Neg (NEG) Urine Phencyclidine Screen Neg (NEG) Urine Amphetamine/Methamphetamine Neg (NEG) Urine Benzodiazepines Screen Neg (NEG) Urine Cocaine Screen Neg (NEG) Urine Cannabinoids Screen Neg (NEG) Urine Ethyl Alcohol Neg (NEG) White Blood Count 14.0 x10^3/uL (4.0-11.0) Red Blood Count 6.02 x10^6/uL (3.50-5.40) Hemoglobin 18.3 g/dL (12.0-15.5) Hematocrit 53.7 % (36.0-47.0) Mean Corpuscular Volume 89 fL (79-100) Mean Corpuscular Hemoglobin 31 pg (25-35) Mean Corpuscular Hemoglobin Concent 34 g/dL (31-37) Red Cell Distribution Width 13.6 % (11.5-14.5) Platelet Count 253 x10^3/uL (140-400) Neutrophils (%) (Auto) 80 % (31-73) Lymphocytes (%) (Auto) 12 % (24-48) Monocytes (%) (Auto) 8 % (0-9) Eosinophils (%) (Auto) 1 % (0-3) Basophils (%) (Auto) 0 % (0-3) Neutrophils # (Auto) 11.1 x10^3uL (1.8-7.7) Lymphocytes # (Auto) 1.6 x10^3/uL (1.0-4.8) Monocytes # (Auto) 1.1 x10^3/uL (0.0-1.1) Eosinophils # (Auto) 0.1 x10^3/uL (0.0-0.7) Basophils # (Auto) 0.1 x10^3/uL (0.0-0.2) Prothrombin Time 13.2 SEC (11.7-14.0) Prothromb Time International Ratio 1.1 (0.8-1.1) Activated Partial Thromboplast Time 26 SEC (24-38) Sodium Level 140 mmol/L (136-145) Potassium Level 3.9 mmol/L (3.5-5.1) Chloride Level 102 mmol/L (98-107) Carbon Dioxide Level 29 mmol/L (21-32) Anion Gap 9 (6-14) Blood Urea Nitrogen 12 mg/dL (7-20) Creatinine 0.8 mg/dL (0.6-1.0) Estimated GFR (Cockcroft-Gault) 72.7 BUN/Creatinine Ratio 15 (6-20) Glucose Level 171 mg/dL (70-99) Calcium Level 9.3 mg/dL (8.5-10.1) Magnesium Level 1.9 mg/dL (1.8-2.4) Total Bilirubin 0.5 mg/dL (0.2-1.0) Aspartate Amino Transf (AST/SGOT) 12 U/L (15-37) Alanine Aminotransferase (ALT/SGPT) 22 U/L (14-59) Alkaline Phosphatase 77 U/L (46-116) Creatine Kinase 46 U/L (26-192) Troponin I Quantitative < 0.017 ng/mL (0.000-0.055) BQ-Fce-B-Type Natriuretic Peptide 115 pg/mL (0-124) Total Protein 7.6 g/dL (6.4-8.2) Albumin 3.5 g/dL (3.4-5.0) Albumin/Globulin Ratio 0.9 (1.0-1.7) Lipase 1273 U/L (73-393) Ethyl Alcohol Level < 10 mg/dL (0-10) Glucose (Fingerstick) 150 mg/dL (70-99) Laboratory Tests Test 05/02/17 12:30 05/02/17 12:32 05/02/17 17:31 Urine Collection Type Unknown Urine Color Alisha Urine Clarity Clear Urine pH 5.5 Urine Specific Coulters >=1.030 Urine Protein 30 mg/dL (NEG-TRACE) Urine Glucose (UA) Negative mg/dL (NEG) Urine Ketones (Stick) Negative mg/dL (NEG) Urine Blood Small (NEG) Urine Nitrite Negative (NEG) Urine Bilirubin Small (NEG) Urine Urobilinogen Dipstick 0.2 mg/dL (0.2 mg/dL) Urine Leukocyte Esterase Negative (NEG) Urine RBC 3-5 /HPF (0-2) Urine WBC 0 /HPF (0-4) Urine Squamous Epithelial Cells Mod /LPF Urine Bacteria Few /HPF (0-FEW) Urine Mucus Marked /LPF Urine Opiates Screen Neg (NEG) Urine Methadone Screen Neg (NEG) Urine Barbiturates Neg (NEG) Urine Phencyclidine Screen Neg (NEG) Urine Amphetamine/Methamphetamine Neg (NEG) Urine Benzodiazepines Screen Neg (NEG) Urine Cocaine Screen Neg (NEG) Urine Cannabinoids Screen Neg (NEG) Urine Ethyl Alcohol Neg (NEG) White Blood Count 14.0 x10^3/uL (4.0-11.0) Red Blood Count 6.02 x10^6/uL (3.50-5.40) Hemoglobin 18.3 g/dL (12.0-15.5) Hematocrit 53.7 % (36.0-47.0) Mean Corpuscular Volume 89 fL (79-100) Mean Corpuscular Hemoglobin 31 pg (25-35) Mean Corpuscular Hemoglobin Concent 34 g/dL (31-37) Red Cell Distribution Width 13.6 % (11.5-14.5) Platelet Count 253 x10^3/uL (140-400) Neutrophils (%) (Auto) 80 % (31-73) Lymphocytes (%) (Auto) 12 % (24-48) Monocytes (%) (Auto) 8 % (0-9) Eosinophils (%) (Auto) 1 % (0-3) Basophils (%) (Auto) 0 % (0-3) Neutrophils # (Auto) 11.1 x10^3uL (1.8-7.7) Lymphocytes # (Auto) 1.6 x10^3/uL (1.0-4.8) Monocytes # (Auto) 1.1 x10^3/uL (0.0-1.1) Eosinophils # (Auto) 0.1 x10^3/uL (0.0-0.7) Basophils # (Auto) 0.1 x10^3/uL (0.0-0.2) Prothrombin Time 13.2 SEC (11.7-14.0) Prothromb Time International Ratio 1.1 (0.8-1.1) Activated Partial Thromboplast Time 26 SEC (24-38) Sodium Level 140 mmol/L (136-145) Potassium Level 3.9 mmol/L (3.5-5.1) Chloride Level 102 mmol/L (98-107) Carbon Dioxide Level 29 mmol/L (21-32) Anion Gap 9 (6-14) Blood Urea Nitrogen 12 mg/dL (7-20) Creatinine 0.8 mg/dL (0.6-1.0) Estimated GFR (Cockcroft-Gault) 72.7 BUN/Creatinine Ratio 15 (6-20) Glucose Level 171 mg/dL (70-99) Calcium Level 9.3 mg/dL (8.5-10.1) Magnesium Level 1.9 mg/dL (1.8-2.4) Total Bilirubin 0.5 mg/dL (0.2-1.0) Aspartate Amino Transf (AST/SGOT) 12 U/L (15-37) Alanine Aminotransferase (ALT/SGPT) 22 U/L (14-59) Alkaline Phosphatase 77 U/L (46-116) Creatine Kinase 46 U/L (26-192) Troponin I Quantitative < 0.017 ng/mL (0.000-0.055) TW-Dgu-L-Type Natriuretic Peptide 115 pg/mL (0-124) Total Protein 7.6 g/dL (6.4-8.2) Albumin 3.5 g/dL (3.4-5.0) Albumin/Globulin Ratio 0.9 (1.0-1.7) Lipase 1273 U/L (73-393) Ethyl Alcohol Level < 10 mg/dL (0-10) Glucose (Fingerstick) 150 mg/dL (70-99) Assessment/Plan Assessment/Plan Abd pain- most likely secndary to acute biliary pancreatitis. Plan medical therapy with fluids/analgesics/antiemetics serial labs eventual lap jose Full note dictated LAYA SANCHEZ MD May 02, 2017 17:48
[2017-05-02 19:00] VITALS: BP 107/61
[2017-05-02] MEDS: FAMOTIDINE 20 MG/2 ML VIAL IVP SCH (21:33)
[2017-05-02 23:00] VITALS: BP 109/62
--- NOTE | 2017-05-02 23:16 | CONS ---
DATE OF CONSULTATION: 05/02/2017 REASON FOR CONSULTATION: Epigastric abdominal pain and acute pancreatitis. HISTORY OF PRESENT ILLNESS: A 61-year-old female with past medical history significant for asthma, fibromyalgia and systemic lupus erythematosus is admitted to [facility] with worsening epigastric pain associated with nausea and vomiting. She has been unable to keep liquids and/or solids down for the past several days with worsening symptoms, which is 10/10 in intensity and pain. She came to the Emergency, has been admitted for further evaluation and care. The patient is known have cholelithiasis, but has differed cholecystectomy in the past. Family history is positive for gallbladder disease with her sisters, mother and aunts. She is otherwise without additional complaints. PAST MEDICAL HISTORY: Fibromyalgia, asthma, lupus, history of fibroid tumors. ALLERGIES: CODEINE AND MORPHINE. MEDICATIONS: Pepcid, Mucinex, ____, Paxil, Ventolin, Colace, ____ and Zofran. SOCIAL HISTORY: She is a social drinker. She does smoke. FAMILY HISTORY: Significant for gallbladder disease with her sisters. REVIEW OF SYSTEMS: Per records. PHYSICAL EXAMINATION: GENERAL: Well-nourished, well-developed female in mild distress, with oxygen cannula to nose. VITAL SIGNS: Temperature is 98.4, pulse 81, respirations 20, blood pressure is 129/72. HEENT: Normocephalic and atraumatic head. Pupils and extraocular muscles not tested. Sclerae anicteric. NECK: Supple. LUNGS: Clear. CARDIOVASCULAR: Reveals S1, S2 without S3, S4 or appreciable murmur. ABDOMEN: Reveals soft abdomen with hypoactive bowel sounds with marked epigastric tenderness to deep palpation. EXTREMITIES: Reveals no cyanosis, clubbing, edema. LABORATORY STUDIES: Hemoglobin is 18.3, hematocrit 52.7, white count 14.0, platelet count 253,000. Sodium 140, potassium 3.9, chloride 102, bicarbonate 29, BUN 12, creatinine 0.8, glucose 171, calcium 9.3, magnesium 1.9, total bilirubin ____, AST of 12, ALT of 22, alkaline phosphatase 77. CPK of 46, lipase 1273, total protein 7.6, albumin 3.5. INR is 1.1. CT scan does reveal some pancreatic stranding as well as cholelithiasis. IMPRESSION AND PLAN: Acute biliary pancreatitis, most likely secondary to symptomatic cholelithiasis. We will recommend the patient be treated medically, fluids, analgesics, antiemetics, serial labs and eventual laparoscopic cholecystectomy. I would like to thank Dr. Disla for allowing me to consult and participate in patient's care. LAYA SACNHEZ MD DR: [email or web address] JOB#: [id number] / [id number] SULAIMAN Crawford MD
[2017-05-03] VITALS (7 sets, daily range): BP systolic 91–124; BP diastolic 40–88
[2017-05-03] MEDS: IV NORMAL SALINE 1000ML BAG 1,000 ML IV SCH ×5 (00:40→21:10)
[2017-05-03 05:36] LABS: CALCIUM 8.6 mg/dL (8.5-10.1); CREATININE 0.7 mg/dL (0.6-1.0); GFR 84.8; POTASSIUM 3.8 mmol/L (3.5-5.1)
[2017-05-03 05:54] LABS: BASO % 0 % (0-3); EOS % 2 % (0-3); HEMOGLOBIN 16.1 g/dL (12.0-15.5); LYMPH # 2.5 x10^3/uL (1.0-4.8); LYMPH % 26 % (24-48); MEAN CORPUSCULAR HEMOGLOBIN 31 pg (25-35); MEAN CORPUSCULAR HGB CONC 34 g/dL (31-37); MEAN CORPUSCULAR VOLUME 91 fL (79-100); MONO % 10 % (0-9); NEUT % 62 % (31-73); PLATELET COUNT 207 x10^3/uL (140-400); RED BLOOD COUNT 5.26 x10^6/uL (3.50-5.40); WHITE BLOOD COUNT 9.5 x10^3/uL (4.0-11.0)
[2017-05-03] MEDS: HEPARIN PF for SUB-Q USE 5,000 UNIT/0.5 ML VIAL. SQ SCH ×3 (06:00→22:00)
[2017-05-03] MEDS: IPRATRPIUM/ALBUTEROL 0.5/2.5MG 3 ML NEBU. NEB SCH ×4 (06:53→20:23)
--- NOTE | 2017-05-03 08:25 | RAD ---
Chest, 2 views, 05/02/2017: History: COPD, diabetes The heart size and pulmonary vascularity are normal. No pulmonary infiltrate are seen. There is no evidence of pleural fluid. There are mild scattered spurs in the spine. IMPRESSION: No acute cardiopulmonary abnormality is detected.
[2017-05-03] MEDS: PARoxetine 10 MG TABLET PO SCH (09:02)
[2017-05-03] MEDS: DOXYCYCLINE HYCLATE 100 MG in IV DEXTROSE 5% 100 ML IV SCH ×2 (09:03→21:11)
--- NOTE | 2017-05-03 10:17 | PDOC ---
PROGRESS NOTES Chief Complaint Chief Complaint Abd pain ASSESSMENT AND PLAN; 1. Acute gallstone pancreatitis: clinically improving. monitor labs, cautiously advance diet 2. Cholelithiasis: long-standing hx. was advised to have GB taken out. plan for CCY in 102 weeks on O/P basis 3. COPD: no acute issues. cont nebs PRN 4. SALVATORE 5. Leukocytosis: resolved 5. Polycythemia: part 2/2 hemoconcentration, but suspect some underlying component prob 2/2 SALVATORE. monitor by PCP 6. Dehydration: resolved 7. Fibromyalgia: cont home meds 8. Morbid obesity (BMI 43): nutrition consult 9. Abn CT findin.5cm left adrenal mass, probable adenoma. rpt non-con CT in 3 months 10. dvt, gi ppx History of Present Illness History of Present Illness feels much better, tolerating clears Vitals Vitals Vital Signs Date Time Temp Pulse Resp B/P (MAP) Pulse Ox O2 Delivery O2 Flow Rate FiO2 05/03/17 08:00 Nasal Cannula 1.0 05/03/17 07:00 97.9 96 18 119/70 (86) 93 97.9 Physical Exam General: Alert, Oriented X3, Cooperative, moderate distress Heart: Regular rate, No murmurs Lungs: Clear Abdomen: Normal bowel sounds, Soft, Other (TTP Epigastrium) Extremities: No edema Skin: No significant lesion Labs LABS Laboratory Tests Test 05/02/17 12:30 05/02/17 12:32 05/02/17 17:31 05/02/17 20:40 Urine Collection Type Unknown Urine Color Alisha Urine Clarity Clear Urine pH 5.5 Urine Specific [place] >=1.030 Urine Protein 30 mg/dL (NEG-TRACE) Urine Glucose (UA) Negative mg/dL (NEG) Urine Ketones (Stick) Negative mg/dL (NEG) Urine Blood Small (NEG) Urine Nitrite Negative (NEG) Urine Bilirubin Small (NEG) Urine Urobilinogen Dipstick 0.2 mg/dL (0.2 mg/dL) Urine Leukocyte Esterase Negative (NEG) Urine RBC 3-5 /HPF (0-2) Urine WBC 0 /HPF (0-4) Urine Squamous Epithelial Cells Mod /LPF Urine Bacteria Few /HPF (0-FEW) Urine Mucus Marked /LPF Urine Opiates Screen Neg (NEG) Urine Methadone Screen Neg (NEG) Urine Barbiturates Neg (NEG) Urine Phencyclidine Screen Neg (NEG) Urine Amphetamine/Methamphetamine Neg (NEG) Urine Benzodiazepines Screen Neg (NEG) Urine Cocaine Screen Neg (NEG) Urine Cannabinoids Screen Neg (NEG) Urine Ethyl Alcohol Neg (NEG) White Blood Count 14.0 x10^3/uL (4.0-11.0) Red Blood Count 6.02 x10^6/uL (3.50-5.40) Hemoglobin 18.3 g/dL (12.0-15.5) Hematocrit 53.7 % (36.0-47.0) Mean Corpuscular Volume 89 fL (79-100) Mean Corpuscular Hemoglobin 31 pg (25-35) Mean Corpuscular Hemoglobin Concent 34 g/dL (31-37) Red Cell Distribution Width 13.6 % (11.5-14.5) Platelet Count 253 x10^3/uL (140-400) Neutrophils (%) (Auto) 80 % (31-73) Lymphocytes (%) (Auto) 12 % (24-48) Monocytes (%) (Auto) 8 % (0-9) Eosinophils (%) (Auto) 1 % (0-3) Basophils (%) (Auto) 0 % (0-3) Neutrophils # (Auto) 11.1 x10^3uL (1.8-7.7) Lymphocytes # (Auto) 1.6 x10^3/uL (1.0-4.8) Monocytes # (Auto) 1.1 x10^3/uL (0.0-1.1) Eosinophils # (Auto) 0.1 x10^3/uL (0.0-0.7) Basophils # (Auto) 0.1 x10^3/uL (0.0-0.2) Prothrombin Time 13.2 SEC (11.7-14.0) Prothromb Time International Ratio 1.1 (0.8-1.1) Activated Partial Thromboplast Time 26 SEC (24-38) Sodium Level 140 mmol/L (136-145) Potassium Level 3.9 mmol/L (3.5-5.1) Chloride Level 102 mmol/L (98-107) Carbon Dioxide Level 29 mmol/L (21-32) Anion Gap 9 (6-14) Blood Urea Nitrogen 12 mg/dL (7-20) Creatinine 0.8 mg/dL (0.6-1.0) Estimated GFR (Cockcroft-Gault) 72.7 BUN/Creatinine Ratio 15 (6-20) Glucose Level 171 mg/dL (70-99) Calcium Level 9.3 mg/dL (8.5-10.1) Magnesium Level 1.9 mg/dL (1.8-2.4) Total Bilirubin 0.5 mg/dL (0.2-1.0) Aspartate Amino Transf (AST/SGOT) 12 U/L (15-37) Alanine Aminotransferase (ALT/SGPT) 22 U/L (14-59) Alkaline Phosphatase 77 U/L (46-116) Creatine Kinase 46 U/L (26-192) Troponin I Quantitative < 0.017 ng/mL (0.000-0.055) IH-Ine-S-Type Natriuretic Peptide 115 pg/mL (0-124) Total Protein 7.6 g/dL (6.4-8.2) Albumin 3.5 g/dL (3.4-5.0) Albumin/Globulin Ratio 0.9 (1.0-1.7) Lipase 1273 U/L (73-393) Ethyl Alcohol Level < 10 mg/dL (0-10) Glucose (Fingerstick) 150 mg/dL (70-99) 127 mg/dL (70-99) Test 05/03/17 04:45 05/03/17 07:29 White Blood Count 9.5 x10^3/uL (4.0-11.0) Red Blood Count 5.26 x10^6/uL (3.50-5.40) Hemoglobin 16.1 g/dL (12.0-15.5) Hematocrit 48.0 % (36.0-47.0) Mean Corpuscular Volume 91 fL (79-100) Mean Corpuscular Hemoglobin 31 pg (25-35) Mean Corpuscular Hemoglobin Concent 34 g/dL (31-37) Red Cell Distribution Width 14.0 % (11.5-14.5) Platelet Count 207 x10^3/uL (140-400) Neutrophils (%) (Auto) 62 % (31-73) Lymphocytes (%) (Auto) 26 % (24-48) Monocytes (%) (Auto) 10 % (0-9) Eosinophils (%) (Auto) 2 % (0-3) Basophils (%) (Auto) 0 % (0-3) Neutrophils # (Auto) 5.9 x10^3uL (1.8-7.7) Lymphocytes # (Auto) 2.5 x10^3/uL (1.0-4.8) Monocytes # (Auto) 0.9 x10^3/uL (0.0-1.1) Eosinophils # (Auto) 0.2 x10^3/uL (0.0-0.7) Basophils # (Auto) 0.0 x10^3/uL (0.0-0.2) Sodium Level 143 mmol/L (136-145) Potassium Level 3.8 mmol/L (3.5-5.1) Chloride Level 107 mmol/L (98-107) Carbon Dioxide Level 29 mmol/L (21-32) Anion Gap 7 (6-14) Blood Urea Nitrogen 10 mg/dL (7-20) Creatinine 0.7 mg/dL (0.6-1.0) Estimated GFR (Cockcroft-Gault) 84.8 Glucose Level 115 mg/dL (70-99) Calcium Level 8.6 mg/dL (8.5-10.1) Lipase 427 U/L (73-393) Glucose (Fingerstick) 116 mg/dL (70-99) KARL ALEXANDER MD May 03, 2017 10:16
--- NOTE | 2017-05-03 11:51 | PDOC ---
G I PROGRESS NOTE Reason for Follow-up ABd pain/pancreatitis Subjective Pain and dyspnea improved Physical Exam Lungs decreased BS CV S1 S2 ABD +BS, soft, mild tenderness Review of Relevant I have reviewed the following items idalia (where applicable) has been applied. Labs Laboratory Tests Test 05/02/17 12:30 05/02/17 12:32 05/02/17 17:31 05/02/17 20:40 Urine Collection Type Unknown Urine Color Alisha Urine Clarity Clear Urine pH 5.5 Urine Specific [place] >=1.030 Urine Protein 30 mg/dL (NEG-TRACE) Urine Glucose (UA) Negative mg/dL (NEG) Urine Ketones (Stick) Negative mg/dL (NEG) Urine Blood Small (NEG) Urine Nitrite Negative (NEG) Urine Bilirubin Small (NEG) Urine Urobilinogen Dipstick 0.2 mg/dL (0.2 mg/dL) Urine Leukocyte Esterase Negative (NEG) Urine RBC 3-5 /HPF (0-2) Urine WBC 0 /HPF (0-4) Urine Squamous Epithelial Cells Mod /LPF Urine Bacteria Few /HPF (0-FEW) Urine Mucus Marked /LPF Urine Opiates Screen Neg (NEG) Urine Methadone Screen Neg (NEG) Urine Barbiturates Neg (NEG) Urine Phencyclidine Screen Neg (NEG) Urine Amphetamine/Methamphetamine Neg (NEG) Urine Benzodiazepines Screen Neg (NEG) Urine Cocaine Screen Neg (NEG) Urine Cannabinoids Screen Neg (NEG) Urine Ethyl Alcohol Neg (NEG) White Blood Count 14.0 x10^3/uL (4.0-11.0) Red Blood Count 6.02 x10^6/uL (3.50-5.40) Hemoglobin 18.3 g/dL (12.0-15.5) Hematocrit 53.7 % (36.0-47.0) Mean Corpuscular Volume 89 fL (79-100) Mean Corpuscular Hemoglobin 31 pg (25-35) Mean Corpuscular Hemoglobin Concent 34 g/dL (31-37) Red Cell Distribution Width 13.6 % (11.5-14.5) Platelet Count 253 x10^3/uL (140-400) Neutrophils (%) (Auto) 80 % (31-73) Lymphocytes (%) (Auto) 12 % (24-48) Monocytes (%) (Auto) 8 % (0-9) Eosinophils (%) (Auto) 1 % (0-3) Basophils (%) (Auto) 0 % (0-3) Neutrophils # (Auto) 11.1 x10^3uL (1.8-7.7) Lymphocytes # (Auto) 1.6 x10^3/uL (1.0-4.8) Monocytes # (Auto) 1.1 x10^3/uL (0.0-1.1) Eosinophils # (Auto) 0.1 x10^3/uL (0.0-0.7) Basophils # (Auto) 0.1 x10^3/uL (0.0-0.2) Prothrombin Time 13.2 SEC (11.7-14.0) Prothromb Time International Ratio 1.1 (0.8-1.1) Activated Partial Thromboplast Time 26 SEC (24-38) Sodium Level 140 mmol/L (136-145) Potassium Level 3.9 mmol/L (3.5-5.1) Chloride Level 102 mmol/L (98-107) Carbon Dioxide Level 29 mmol/L (21-32) Anion Gap 9 (6-14) Blood Urea Nitrogen 12 mg/dL (7-20) Creatinine 0.8 mg/dL (0.6-1.0) Estimated GFR (Cockcroft-Gault) 72.7 BUN/Creatinine Ratio 15 (6-20) Glucose Level 171 mg/dL (70-99) Calcium Level 9.3 mg/dL (8.5-10.1) Magnesium Level 1.9 mg/dL (1.8-2.4) Total Bilirubin 0.5 mg/dL (0.2-1.0) Aspartate Amino Transf (AST/SGOT) 12 U/L (15-37) Alanine Aminotransferase (ALT/SGPT) 22 U/L (14-59) Alkaline Phosphatase 77 U/L (46-116) Creatine Kinase 46 U/L (26-192) Troponin I Quantitative < 0.017 ng/mL (0.000-0.055) AS-Biw-H-Type Natriuretic Peptide 115 pg/mL (0-124) Total Protein 7.6 g/dL (6.4-8.2) Albumin 3.5 g/dL (3.4-5.0) Albumin/Globulin Ratio 0.9 (1.0-1.7) Lipase 1273 U/L (73-393) Ethyl Alcohol Level < 10 mg/dL (0-10) Glucose (Fingerstick) 150 mg/dL (70-99) 127 mg/dL (70-99) Test 05/03/17 04:45 05/03/17 07:29 05/03/17 11:13 White Blood Count 9.5 x10^3/uL (4.0-11.0) Red Blood Count 5.26 x10^6/uL (3.50-5.40) Hemoglobin 16.1 g/dL (12.0-15.5) Hematocrit 48.0 % (36.0-47.0) Mean Corpuscular Volume 91 fL (79-100) Mean Corpuscular Hemoglobin 31 pg (25-35) Mean Corpuscular Hemoglobin Concent 34 g/dL (31-37) Red Cell Distribution Width 14.0 % (11.5-14.5) Platelet Count 207 x10^3/uL (140-400) Neutrophils (%) (Auto) 62 % (31-73) Lymphocytes (%) (Auto) 26 % (24-48) Monocytes (%) (Auto) 10 % (0-9) Eosinophils (%) (Auto) 2 % (0-3) Basophils (%) (Auto) 0 % (0-3) Neutrophils # (Auto) 5.9 x10^3uL (1.8-7.7) Lymphocytes # (Auto) 2.5 x10^3/uL (1.0-4.8) Monocytes # (Auto) 0.9 x10^3/uL (0.0-1.1) Eosinophils # (Auto) 0.2 x10^3/uL (0.0-0.7) Basophils # (Auto) 0.0 x10^3/uL (0.0-0.2) Sodium Level 143 mmol/L (136-145) Potassium Level 3.8 mmol/L (3.5-5.1) Chloride Level 107 mmol/L (98-107) Carbon Dioxide Level 29 mmol/L (21-32) Anion Gap 7 (6-14) Blood Urea Nitrogen 10 mg/dL (7-20) Creatinine 0.7 mg/dL (0.6-1.0) Estimated GFR (Cockcroft-Gault) 84.8 Glucose Level 115 mg/dL (70-99) Calcium Level 8.6 mg/dL (8.5-10.1) Lipase 427 U/L (73-393) Glucose (Fingerstick) 116 mg/dL (70-99) 123 mg/dL (70-99) Laboratory Tests Test 05/02/17 12:30 05/02/17 12:32 05/02/17 17:31 05/02/17 20:40 Urine Collection Type Unknown Urine Color Alisha Urine Clarity Clear Urine pH 5.5 Urine Specific [place] >=1.030 Urine Protein 30 mg/dL (NEG-TRACE) Urine Glucose (UA) Negative mg/dL (NEG) Urine Ketones (Stick) Negative mg/dL (NEG) Urine Blood Small (NEG) Urine Nitrite Negative (NEG) Urine Bilirubin Small (NEG) Urine Urobilinogen Dipstick 0.2 mg/dL (0.2 mg/dL) Urine Leukocyte Esterase Negative (NEG) Urine RBC 3-5 /HPF (0-2) Urine WBC 0 /HPF (0-4) Urine Squamous Epithelial Cells Mod /LPF Urine Bacteria Few /HPF (0-FEW) Urine Mucus Marked /LPF Urine Opiates Screen Neg (NEG) Urine Methadone Screen Neg (NEG) Urine Barbiturates Neg (NEG) Urine Phencyclidine Screen Neg (NEG) Urine Amphetamine/Methamphetamine Neg (NEG) Urine Benzodiazepines Screen Neg (NEG) Urine Cocaine Screen Neg (NEG) Urine Cannabinoids Screen Neg (NEG) Urine Ethyl Alcohol Neg (NEG) White Blood Count 14.0 x10^3/uL (4.0-11.0) Red Blood Count 6.02 x10^6/uL (3.50-5.40) Hemoglobin 18.3 g/dL (12.0-15.5) Hematocrit 53.7 % (36.0-47.0) Mean Corpuscular Volume 89 fL (79-100) Mean Corpuscular Hemoglobin 31 pg (25-35) Mean Corpuscular Hemoglobin Concent 34 g/dL (31-37) Red Cell Distribution Width 13.6 % (11.5-14.5) Platelet Count 253 x10^3/uL (140-400) Neutrophils (%) (Auto) 80 % (31-73) Lymphocytes (%) (Auto) 12 % (24-48) Monocytes (%) (Auto) 8 % (0-9) Eosinophils (%) (Auto) 1 % (0-3) Basophils (%) (Auto) 0 % (0-3) Neutrophils # (Auto) 11.1 x10^3uL (1.8-7.7) Lymphocytes # (Auto) 1.6 x10^3/uL (1.0-4.8) Monocytes # (Auto) 1.1 x10^3/uL (0.0-1.1) Eosinophils # (Auto) 0.1 x10^3/uL (0.0-0.7) Basophils # (Auto) 0.1 x10^3/uL (0.0-0.2) Prothrombin Time 13.2 SEC (11.7-14.0) Prothromb Time International Ratio 1.1 (0.8-1.1) Activated Partial Thromboplast Time 26 SEC (24-38) Sodium Level 140 mmol/L (136-145) Potassium Level 3.9 mmol/L (3.5-5.1) Chloride Level 102 mmol/L (98-107) Carbon Dioxide Level 29 mmol/L (21-32) Anion Gap 9 (6-14) Blood Urea Nitrogen 12 mg/dL (7-20) Creatinine 0.8 mg/dL (0.6-1.0) Estimated GFR (Cockcroft-Gault) 72.7 BUN/Creatinine Ratio 15 (6-20) Glucose Level 171 mg/dL (70-99) Calcium Level 9.3 mg/dL (8.5-10.1) Magnesium Level 1.9 mg/dL (1.8-2.4) Total Bilirubin 0.5 mg/dL (0.2-1.0) Aspartate Amino Transf (AST/SGOT) 12 U/L (15-37) Alanine Aminotransferase (ALT/SGPT) 22 U/L (14-59) Alkaline Phosphatase 77 U/L (46-116) Creatine Kinase 46 U/L (26-192) Troponin I Quantitative < 0.017 ng/mL (0.000-0.055) YZ-Aqr-D-Type Natriuretic Peptide 115 pg/mL (0-124) Total Protein 7.6 g/dL (6.4-8.2) Albumin 3.5 g/dL (3.4-5.0) Albumin/Globulin Ratio 0.9 (1.0-1.7) Lipase 1273 U/L (73-393) Ethyl Alcohol Level < 10 mg/dL (0-10) Glucose (Fingerstick) 150 mg/dL (70-99) 127 mg/dL (70-99) Test 05/03/17 04:45 05/03/17 07:29 05/03/17 11:13 White Blood Count 9.5 x10^3/uL (4.0-11.0) Red Blood Count 5.26 x10^6/uL (3.50-5.40) Hemoglobin 16.1 g/dL (12.0-15.5) Hematocrit 48.0 % (36.0-47.0) Mean Corpuscular Volume 91 fL (79-100) Mean Corpuscular Hemoglobin 31 pg (25-35) Mean Corpuscular Hemoglobin Concent 34 g/dL (31-37) Red Cell Distribution Width 14.0 % (11.5-14.5) Platelet Count 207 x10^3/uL (140-400) Neutrophils (%) (Auto) 62 % (31-73) Lymphocytes (%) (Auto) 26 % (24-48) Monocytes (%) (Auto) 10 % (0-9) Eosinophils (%) (Auto) 2 % (0-3) Basophils (%) (Auto) 0 % (0-3) Neutrophils # (Auto) 5.9 x10^3uL (1.8-7.7) Lymphocytes # (Auto) 2.5 x10^3/uL (1.0-4.8) Monocytes # (Auto) 0.9 x10^3/uL (0.0-1.1) Eosinophils # (Auto) 0.2 x10^3/uL (0.0-0.7) Basophils # (Auto) 0.0 x10^3/uL (0.0-0.2) Sodium Level 143 mmol/L (136-145) Potassium Level 3.8 mmol/L (3.5-5.1) Chloride Level 107 mmol/L (98-107) Carbon Dioxide Level 29 mmol/L (21-32) Anion Gap 7 (6-14) Blood Urea Nitrogen 10 mg/dL (7-20) Creatinine 0.7 mg/dL (0.6-1.0) Estimated GFR (Cockcroft-Gault) 84.8 Glucose Level 115 mg/dL (70-99) Calcium Level 8.6 mg/dL (8.5-10.1) Lipase 427 U/L (73-393) Glucose (Fingerstick) 116 mg/dL (70-99) 123 mg/dL (70-99) Medications Current Medications Ondansetron HCl (Zofran) 8 mg 1X ONCE IV Last administered on 05/02/17 12:54; Start 05/02/17 at 12:45; Stop 05/02/17 at 12:46; Status DC Sodium Chloride 1,000 ml @ 1,000 mls/hr 1X ONCE IV Last administered on 12:54; Start 05/02/17 at 12:45; Stop 05/02/17 at 13:44; Status DC Morphine Sulfate 5 mg 1X ONCE IV ; Start 05/02/17 at 12:45; Stop 05/02/17 at 12: 45; Status DC Albuterol/ Ipratropium (Duoneb) 3 ml 1X ONCE NEB Last administered on 13:17; Start 05/02/17 at 13:15; Stop 05/02/17 at 13:16; Status DC Fentanyl Citrate (Fentanyl 2ml Vial) 100 mcg 1X ONCE IV ; Start 05/02/17 at 13: 00; Stop 05/02/17 at 13:01; Status DC Iohexol (Omnipaque 300 Mg/ml) 75 ml 1X ONCE IV Last administered on 05/02/17 13:43; Start 05/02/17 at 13:15; Stop 05/02/17 at 13:16; Status DC Info (Do NOT chart on this entry -- for MONITORING) 1 each PRN DAILY PRN MC SEE COMMENTS; Start 05/02/17 at 13:15; Stop 05/04/17 at 13:14 Paroxetine HCl (Paxil) 10 mg DAILY PO Last administered on 05/03/17 09:02; Start 05/02/17 at 16:00 Pregabalin (Lyrica) 25 mg TID PO ; Start 05/02/17 at 15:15; Stop 05/02/17 at 17:27 ; Status DC Acetaminophen (Tylenol) 650 mg PRN Q6HRS PRN PO FEVER; Start 05/02/17 at 15:00 Ondansetron HCl (Zofran) 4 mg PRN Q6HRS PRN IV NAUSEA/VOMITING Last administered on 05/02/17 15:31; Start 05/02/17 at 15:00 Hydralazine HCl (Apresoline) 10 mg PRN Q4HRS PRN IVP ELEVATED BP, SEE COMMENTS ; Start 05/02/17 at 15:00 Docusate Sodium (Colace) 100 mg PRN DAILY PRN PO CONSTIPATION; Start 05/02/17 at 15:00 Fentanyl Citrate (Fentanyl 2ml Vial) 50 mcg PRN Q2HR PRN IV PAIN Last administered on 05/02/17 15:31; Start 05/02/17 at 15:00 Sodium Chloride 1,000 ml @ 150 mls/hr Q6H40M IV Last administered on 05/03/17 06:09; Start 05/02/17 at 15:00 Albuterol/ Ipratropium (Duoneb) 3 ml RTQID NEB Last administered on 05/03/17 10 :47; Start 05/02/17 at 16:00 Albuterol Sulfate (Ventolin Neb Soln) 2.5 mg PRN Q2HR PRN NEB SHORTNESS OF BREATH; Start 05/02/17 at 15:00 Guaifenesin (Mucinex) 600 mg BID PO Last administered on 05/03/17 09:02; Start 05/02/17 at 21:00 Doxycycline Hyclate 100 mg/ Dextrose 100 ml @ 50 mls/hr Q12HR IV Last administered on 05/03/17 09:03; Start 05/02/17 at 16:00 Heparin Sodium (Porcine) (Heparin Sq) 5,000 unit Q8HRS SQ Last administered on 05/02/17 17:45; Start 05/02/17 at 15:15 Famotidine (Pepcid) 20 mg QHS IVP Last administered on 05/02/17 21:33; Start at 21:00 Fentanyl Citrate (Fentanyl 2ml Vial) 25 mcg PRN Q2HR PRN IV PAIN Last administered on 05/02/17 22:04; Start 05/02/17 at 18:30 Active Scripts Active Reported Hydrocodone-Apap 10-325 (Hydrocodone Bit/Acetaminophen) 1 Each Tablet 1 Tab PO PRN Q6HRS PRN Advair 500-50 Diskus (Fluticasone/Salmeterol) 1 Each Disk.w.dev 1 Each IH Paxil (Paroxetine Hcl) 10 Mg Tablet 10 Mg PO Vitals/I & O Vital Sign - Last 24 Hours 05/02/17 05/02/17 05/02/17 05/02/17 12:25 13:17 13:20 14:26 Temp 98.8 98.8 Pulse 115 98 97 Resp 22 23 14 B/P (MAP) 146/97 (113) 173/98 (123) 153/96 (115) Pulse Ox 92 90 95 94 O2 Delivery Nasal Cannula Nasal Cannula Nasal Cannula Nasal Cannula O2 Flow Rate 2.0 2.0 3.0 2.0 05/02/17 05/02/17 05/02/17 05/02/17 15:05 15:15 15:31 15:59 Temp 98.4 98.4 Pulse 81 Resp 20 B/P (MAP) 129/72 (91) Pulse Ox 97 86 O2 Delivery Nasal Cannula Nasal Cannula Nasal Cannula Room Air O2 Flow Rate 2.0 2.0 3.0 05/02/17 05/02/17 05/02/17 05/02/17 16:00 19:00 19:18 20:00 Temp 97.5 97.5 Pulse 93 Resp 20 B/P (MAP) 107/61 (76) Pulse Ox 92 O2 Delivery Nasal Cannula Nasal Cannula Room Air Nasal Cannula O2 Flow Rate 3.0 2.0 3.0 05/02/17 05/02/17 05/02/17 05/03/17 22:04 22:34 23:00 03:00 Temp 97.9 97.3 97.9 97.3 Pulse 85 88 Resp 18 18 B/P (MAP) 109/62 (78) 106/54 (71) Pulse Ox 94 94 94 93 O2 Delivery Nasal Cannula Nasal Cannula Nasal Cannula Nasal Cannula O2 Flow Rate 3.0 3.0 2.0 2.0 05/03/17 05/03/17 05/03/17 05/03/17 06:54 07:00 08:00 10:50 Temp 97.9 97.9 Pulse 96 Resp 18 B/P (MAP) 119/70 (86) Pulse Ox 95 93 O2 Delivery Nasal Cannula Room Air Nasal Cannula Nasal Cannula O2 Flow Rate 3.0 1.0 3.0 05/03/17 11:00 Temp 97.7 97.7 Pulse 82 Resp 18 B/P (MAP) 107/67 (80) Pulse Ox 94 O2 Delivery Nasal Cannula O2 Flow Rate 2.0 Intake and Output 05/02/17 05/02/17 05/03/17 15:00 23:00 07:00 Intake Total 0 ml Output Total 0 ml Balance 0 ml 0 ml Problem List Problems Medical Problems: (1) Dehydration Status: Acute (2) Leukocytosis Status: Acute Assessment Acute pancreatitis- most likely biliary in nature, with improving appetite and pain, will advance diet as tolerated, will reassess saturday LAYA SANCHEZ MD May 03, 2017 11:51
--- NOTE | 2017-05-03 14:53 | PDOC ---
SURGICAL PROGRESS NOTE Subjective improved, mild RUQ pain at times no n/v Vital Signs Vital Signs Date Time Temp Pulse Resp B/P (MAP) Pulse Ox O2 Delivery O2 Flow Rate FiO2 05/03/17 11:00 97.7 82 18 107/67 (80) 94 Nasal Cannula 2.0 97.7 I&O Intake and Output 05/03/17 06:59 Intake Total 0 ml Output Total 0 ml Balance 0 ml Intake Oral 0 ml Output Urine Total 0 ml # Voids 1 General: Alert, Oriented X3, Cooperative, No acute distress Abdomen: Soft, Other (mild TTP RUQ) Labs Laboratory Tests Test 05/02/17 12:30 05/02/17 12:32 05/02/17 17:31 05/02/17 20:40 Urine Collection Type Unknown Urine Color Alisha Urine Clarity Clear Urine pH 5.5 Urine Specific [place] >=1.030 Urine Protein 30 mg/dL (NEG-TRACE) Urine Glucose (UA) Negative mg/dL (NEG) Urine Ketones (Stick) Negative mg/dL (NEG) Urine Blood Small (NEG) Urine Nitrite Negative (NEG) Urine Bilirubin Small (NEG) Urine Urobilinogen Dipstick 0.2 mg/dL (0.2 mg/dL) Urine Leukocyte Esterase Negative (NEG) Urine RBC 3-5 /HPF (0-2) Urine WBC 0 /HPF (0-4) Urine Squamous Epithelial Cells Mod /LPF Urine Bacteria Few /HPF (0-FEW) Urine Mucus Marked /LPF Urine Opiates Screen Neg (NEG) Urine Methadone Screen Neg (NEG) Urine Barbiturates Neg (NEG) Urine Phencyclidine Screen Neg (NEG) Urine Amphetamine/Methamphetamine Neg (NEG) Urine Benzodiazepines Screen Neg (NEG) Urine Cocaine Screen Neg (NEG) Urine Cannabinoids Screen Neg (NEG) Urine Ethyl Alcohol Neg (NEG) White Blood Count 14.0 x10^3/uL (4.0-11.0) Red Blood Count 6.02 x10^6/uL (3.50-5.40) Hemoglobin 18.3 g/dL (12.0-15.5) Hematocrit 53.7 % (36.0-47.0) Mean Corpuscular Volume 89 fL (79-100) Mean Corpuscular Hemoglobin 31 pg (25-35) Mean Corpuscular Hemoglobin Concent 34 g/dL (31-37) Red Cell Distribution Width 13.6 % (11.5-14.5) Platelet Count 253 x10^3/uL (140-400) Neutrophils (%) (Auto) 80 % (31-73) Lymphocytes (%) (Auto) 12 % (24-48) Monocytes (%) (Auto) 8 % (0-9) Eosinophils (%) (Auto) 1 % (0-3) Basophils (%) (Auto) 0 % (0-3) Neutrophils # (Auto) 11.1 x10^3uL (1.8-7.7) Lymphocytes # (Auto) 1.6 x10^3/uL (1.0-4.8) Monocytes # (Auto) 1.1 x10^3/uL (0.0-1.1) Eosinophils # (Auto) 0.1 x10^3/uL (0.0-0.7) Basophils # (Auto) 0.1 x10^3/uL (0.0-0.2) Prothrombin Time 13.2 SEC (11.7-14.0) Prothromb Time International Ratio 1.1 (0.8-1.1) Activated Partial Thromboplast Time 26 SEC (24-38) Sodium Level 140 mmol/L (136-145) Potassium Level 3.9 mmol/L (3.5-5.1) Chloride Level 102 mmol/L (98-107) Carbon Dioxide Level 29 mmol/L (21-32) Anion Gap 9 (6-14) Blood Urea Nitrogen 12 mg/dL (7-20) Creatinine 0.8 mg/dL (0.6-1.0) Estimated GFR (Cockcroft-Gault) 72.7 BUN/Creatinine Ratio 15 (6-20) Glucose Level 171 mg/dL (70-99) Calcium Level 9.3 mg/dL (8.5-10.1) Magnesium Level 1.9 mg/dL (1.8-2.4) Total Bilirubin 0.5 mg/dL (0.2-1.0) Aspartate Amino Transf (AST/SGOT) 12 U/L (15-37) Alanine Aminotransferase (ALT/SGPT) 22 U/L (14-59) Alkaline Phosphatase 77 U/L (46-116) Creatine Kinase 46 U/L (26-192) Troponin I Quantitative < 0.017 ng/mL (0.000-0.055) FF-Ijh-K-Type Natriuretic Peptide 115 pg/mL (0-124) Total Protein 7.6 g/dL (6.4-8.2) Albumin 3.5 g/dL (3.4-5.0) Albumin/Globulin Ratio 0.9 (1.0-1.7) Lipase 1273 U/L (73-393) Ethyl Alcohol Level < 10 mg/dL (0-10) Glucose (Fingerstick) 150 mg/dL (70-99) 127 mg/dL (70-99) Test 05/03/17 04:45 05/03/17 07:29 05/03/17 11:13 White Blood Count 9.5 x10^3/uL (4.0-11.0) Red Blood Count 5.26 x10^6/uL (3.50-5.40) Hemoglobin 16.1 g/dL (12.0-15.5) Hematocrit 48.0 % (36.0-47.0) Mean Corpuscular Volume 91 fL (79-100) Mean Corpuscular Hemoglobin 31 pg (25-35) Mean Corpuscular Hemoglobin Concent 34 g/dL (31-37) Red Cell Distribution Width 14.0 % (11.5-14.5) Platelet Count 207 x10^3/uL (140-400) Neutrophils (%) (Auto) 62 % (31-73) Lymphocytes (%) (Auto) 26 % (24-48) Monocytes (%) (Auto) 10 % (0-9) Eosinophils (%) (Auto) 2 % (0-3) Basophils (%) (Auto) 0 % (0-3) Neutrophils # (Auto) 5.9 x10^3uL (1.8-7.7) Lymphocytes # (Auto) 2.5 x10^3/uL (1.0-4.8) Monocytes # (Auto) 0.9 x10^3/uL (0.0-1.1) Eosinophils # (Auto) 0.2 x10^3/uL (0.0-0.7) Basophils # (Auto) 0.0 x10^3/uL (0.0-0.2) Sodium Level 143 mmol/L (136-145) Potassium Level 3.8 mmol/L (3.5-5.1) Chloride Level 107 mmol/L (98-107) Carbon Dioxide Level 29 mmol/L (21-32) Anion Gap 7 (6-14) Blood Urea Nitrogen 10 mg/dL (7-20) Creatinine 0.7 mg/dL (0.6-1.0) Estimated GFR (Cockcroft-Gault) 84.8 Glucose Level 115 mg/dL (70-99) Calcium Level 8.6 mg/dL (8.5-10.1) Lipase 427 U/L (73-393) Glucose (Fingerstick) 116 mg/dL (70-99) 123 mg/dL (70-99) Laboratory Tests Test 05/02/17 17:31 05/02/17 20:40 05/03/17 04:45 05/03/17 07:29 Glucose (Fingerstick) 150 mg/dL (70-99) 127 mg/dL (70-99) 116 mg/dL (70-99) White Blood Count 9.5 x10^3/uL (4.0-11.0) Red Blood Count 5.26 x10^6/uL (3.50-5.40) Hemoglobin 16.1 g/dL (12.0-15.5) Hematocrit 48.0 % (36.0-47.0) Mean Corpuscular Volume 91 fL (79-100) Mean Corpuscular Hemoglobin 31 pg (25-35) Mean Corpuscular Hemoglobin Concent 34 g/dL (31-37) Red Cell Distribution Width 14.0 % (11.5-14.5) Platelet Count 207 x10^3/uL (140-400) Neutrophils (%) (Auto) 62 % (31-73) Lymphocytes (%) (Auto) 26 % (24-48) Monocytes (%) (Auto) 10 % (0-9) Eosinophils (%) (Auto) 2 % (0-3) Basophils (%) (Auto) 0 % (0-3) Neutrophils # (Auto) 5.9 x10^3uL (1.8-7.7) Lymphocytes # (Auto) 2.5 x10^3/uL (1.0-4.8) Monocytes # (Auto) 0.9 x10^3/uL (0.0-1.1) Eosinophils # (Auto) 0.2 x10^3/uL (0.0-0.7) Basophils # (Auto) 0.0 x10^3/uL (0.0-0.2) Sodium Level 143 mmol/L (136-145) Potassium Level 3.8 mmol/L (3.5-5.1) Chloride Level 107 mmol/L (98-107) Carbon Dioxide Level 29 mmol/L (21-32) Anion Gap 7 (6-14) Blood Urea Nitrogen 10 mg/dL (7-20) Creatinine 0.7 mg/dL (0.6-1.0) Estimated GFR (Cockcroft-Gault) 84.8 Glucose Level 115 mg/dL (70-99) Calcium Level 8.6 mg/dL (8.5-10.1) Lipase 427 U/L (73-393) Test 05/03/17 11:13 Glucose (Fingerstick) 123 mg/dL (70-99) Problem List Problems Medical Problems: (1) Dehydration Status: Acute (2) Leukocytosis Status: Acute Assessment/Plan gs pancreatitis improved trying diet will FU in AM--will review with Dr Hackett on timing of surgery Problems: SANGITA WEN [employer]IOR [employer] May 03, 2017 14:53
--- NOTE | 2017-05-03 17:22 | PDOC ---
PULMONARY PROGRESS NOTES Vitals Vital Signs Date Time Temp Pulse Resp B/P (MAP) Pulse Ox O2 Delivery O2 Flow Rate FiO2 05/03/17 15:01 92 Nasal Cannula 2.0 05/03/17 15:00 98.8 79 18 110/65 (80) 98.8 Lungs: Clear Labs Laboratory Tests Test 05/02/17 12:30 05/02/17 12:32 05/02/17 17:31 05/02/17 20:40 Urine Collection Type Unknown Urine Color Alisha Urine Clarity Clear Urine pH 5.5 Urine Specific [place] >=1.030 Urine Protein 30 mg/dL (NEG-TRACE) Urine Glucose (UA) Negative mg/dL (NEG) Urine Ketones (Stick) Negative mg/dL (NEG) Urine Blood Small (NEG) Urine Nitrite Negative (NEG) Urine Bilirubin Small (NEG) Urine Urobilinogen Dipstick 0.2 mg/dL (0.2 mg/dL) Urine Leukocyte Esterase Negative (NEG) Urine RBC 3-5 /HPF (0-2) Urine WBC 0 /HPF (0-4) Urine Squamous Epithelial Cells Mod /LPF Urine Bacteria Few /HPF (0-FEW) Urine Mucus Marked /LPF Urine Opiates Screen Neg (NEG) Urine Methadone Screen Neg (NEG) Urine Barbiturates Neg (NEG) Urine Phencyclidine Screen Neg (NEG) Urine Amphetamine/Methamphetamine Neg (NEG) Urine Benzodiazepines Screen Neg (NEG) Urine Cocaine Screen Neg (NEG) Urine Cannabinoids Screen Neg (NEG) Urine Ethyl Alcohol Neg (NEG) White Blood Count 14.0 x10^3/uL (4.0-11.0) Red Blood Count 6.02 x10^6/uL (3.50-5.40) Hemoglobin 18.3 g/dL (12.0-15.5) Hematocrit 53.7 % (36.0-47.0) Mean Corpuscular Volume 89 fL (79-100) Mean Corpuscular Hemoglobin 31 pg (25-35) Mean Corpuscular Hemoglobin Concent 34 g/dL (31-37) Red Cell Distribution Width 13.6 % (11.5-14.5) Platelet Count 253 x10^3/uL (140-400) Neutrophils (%) (Auto) 80 % (31-73) Lymphocytes (%) (Auto) 12 % (24-48) Monocytes (%) (Auto) 8 % (0-9) Eosinophils (%) (Auto) 1 % (0-3) Basophils (%) (Auto) 0 % (0-3) Neutrophils # (Auto) 11.1 x10^3uL (1.8-7.7) Lymphocytes # (Auto) 1.6 x10^3/uL (1.0-4.8) Monocytes # (Auto) 1.1 x10^3/uL (0.0-1.1) Eosinophils # (Auto) 0.1 x10^3/uL (0.0-0.7) Basophils # (Auto) 0.1 x10^3/uL (0.0-0.2) Prothrombin Time 13.2 SEC (11.7-14.0) Prothromb Time International Ratio 1.1 (0.8-1.1) Activated Partial Thromboplast Time 26 SEC (24-38) Sodium Level 140 mmol/L (136-145) Potassium Level 3.9 mmol/L (3.5-5.1) Chloride Level 102 mmol/L (98-107) Carbon Dioxide Level 29 mmol/L (21-32) Anion Gap 9 (6-14) Blood Urea Nitrogen 12 mg/dL (7-20) Creatinine 0.8 mg/dL (0.6-1.0) Estimated GFR (Cockcroft-Gault) 72.7 BUN/Creatinine Ratio 15 (6-20) Glucose Level 171 mg/dL (70-99) Calcium Level 9.3 mg/dL (8.5-10.1) Magnesium Level 1.9 mg/dL (1.8-2.4) Total Bilirubin 0.5 mg/dL (0.2-1.0) Aspartate Amino Transf (AST/SGOT) 12 U/L (15-37) Alanine Aminotransferase (ALT/SGPT) 22 U/L (14-59) Alkaline Phosphatase 77 U/L (46-116) Creatine Kinase 46 U/L (26-192) Troponin I Quantitative < 0.017 ng/mL (0.000-0.055) W[place]-Vnp-Q-Type Natriuretic Peptide 115 pg/mL (0-124) Total Protein 7.6 g/dL (6.4-8.2) Albumin 3.5 g/dL (3.4-5.0) Albumin/Globulin Ratio 0.9 (1.0-1.7) Lipase 1273 U/L (73-393) Ethyl Alcohol Level < 10 mg/dL (0-10) Glucose (Fingerstick) 150 mg/dL (70-99) 127 mg/dL (70-99) Test 05/03/17 04:45 05/03/17 07:29 05/03/17 11:13 05/03/17 16:09 White Blood Count 9.5 x10^3/uL (4.0-11.0) Red Blood Count 5.26 x10^6/uL (3.50-5.40) Hemoglobin 16.1 g/dL (12.0-15.5) Hematocrit 48.0 % (36.0-47.0) Mean Corpuscular Volume 91 fL (79-100) Mean Corpuscular Hemoglobin 31 pg (25-35) Mean Corpuscular Hemoglobin Concent 34 g/dL (31-37) Red Cell Distribution Width 14.0 % (11.5-14.5) Platelet Count 207 x10^3/uL (140-400) Neutrophils (%) (Auto) 62 % (31-73) Lymphocytes (%) (Auto) 26 % (24-48) Monocytes (%) (Auto) 10 % (0-9) Eosinophils (%) (Auto) 2 % (0-3) Basophils (%) (Auto) 0 % (0-3) Neutrophils # (Auto) 5.9 x10^3uL (1.8-7.7) Lymphocytes # (Auto) 2.5 x10^3/uL (1.0-4.8) Monocytes # (Auto) 0.9 x10^3/uL (0.0-1.1) Eosinophils # (Auto) 0.2 x10^3/uL (0.0-0.7) Basophils # (Auto) 0.0 x10^3/uL (0.0-0.2) Sodium Level 143 mmol/L (136-145) Potassium Level 3.8 mmol/L (3.5-5.1) Chloride Level 107 mmol/L (98-107) Carbon Dioxide Level 29 mmol/L (21-32) Anion Gap 7 (6-14) Blood Urea Nitrogen 10 mg/dL (7-20) Creatinine 0.7 mg/dL (0.6-1.0) Estimated GFR (Cockcroft-Gault) 84.8 Glucose Level 115 mg/dL (70-99) Calcium Level 8.6 mg/dL (8.5-10.1) Lipase 427 U/L (73-393) Glucose (Fingerstick) 116 mg/dL (70-99) 123 mg/dL (70-99) 102 mg/dL (70-99) Laboratory Tests Test 05/02/17 17:31 05/02/17 20:40 05/03/17 04:45 05/03/17 07:29 Glucose (Fingerstick) 150 mg/dL (70-99) 127 mg/dL (70-99) 116 mg/dL (70-99) White Blood Count 9.5 x10^3/uL (4.0-11.0) Red Blood Count 5.26 x10^6/uL (3.50-5.40) Hemoglobin 16.1 g/dL (12.0-15.5) Hematocrit 48.0 % (36.0-47.0) Mean Corpuscular Volume 91 fL (79-100) Mean Corpuscular Hemoglobin 31 pg (25-35) Mean Corpuscular Hemoglobin Concent 34 g/dL (31-37) Red Cell Distribution Width 14.0 % (11.5-14.5) Platelet Count 207 x10^3/uL (140-400) Neutrophils (%) (Auto) 62 % (31-73) Lymphocytes (%) (Auto) 26 % (24-48) Monocytes (%) (Auto) 10 % (0-9) Eosinophils (%) (Auto) 2 % (0-3) Basophils (%) (Auto) 0 % (0-3) Neutrophils # (Auto) 5.9 x10^3uL (1.8-7.7) Lymphocytes # (Auto) 2.5 x10^3/uL (1.0-4.8) Monocytes # (Auto) 0.9 x10^3/uL (0.0-1.1) Eosinophils # (Auto) 0.2 x10^3/uL (0.0-0.7) Basophils # (Auto) 0.0 x10^3/uL (0.0-0.2) Sodium Level 143 mmol/L (136-145) Potassium Level 3.8 mmol/L (3.5-5.1) Chloride Level 107 mmol/L (98-107) Carbon Dioxide Level 29 mmol/L (21-32) Anion Gap 7 (6-14) Blood Urea Nitrogen 10 mg/dL (7-20) Creatinine 0.7 mg/dL (0.6-1.0) Estimated GFR (Cockcroft-Gault) 84.8 Glucose Level 115 mg/dL (70-99) Calcium Level 8.6 mg/dL (8.5-10.1) Lipase 427 U/L (73-393) Test 05/03/17 11:13 05/03/17 16:09 Glucose (Fingerstick) 123 mg/dL (70-99) 102 mg/dL (70-99) Medications Active Scripts Medications Dose Route/Sig Max Daily Dose Days Date Category Hydrocodone-Apap 10-325 (Hydrocodone Bit/Acetaminophen) 1 Each Tablet 1 Tab PO PRN Q6HRS PRN 05/02/17 Reported Advair 500-50 Diskus (Fluticasone/Salmeterol) 1 Each Disk.w.dev 1 Each IH 10/11/13 Reported Paxil (Paroxetine Hcl) 10 Mg Tablet 10 Mg PO 10/11/13 Reported Impression . FULL CONSULT DICTATED AECOPD D/C IN AM OK FOLLOW UP IN OFFICE IN 6 MIN WALK CHRISTIE CHENG MD May 03, 2017 17:22
[2017-05-03] MEDS ORDERED: IV NORMAL SALINE 500ML BAG 500 ML IV ONE (20:00)
[2017-05-03] MEDS: FAMOTIDINE 20 MG/2 ML VIAL IVP SCH (21:12)
--- NOTE | 2017-05-04 00:32 | CONS ---
DATE OF CONSULTATION: 05/03/2017 ATTENDING PHYSICIAN: Dr. Disla. REASON FOR CONSULTATION: The patient is seen in pulmonary consultation at the request of Dr. Disla for increasing shortness of breath. HISTORY OF PRESENT ILLNESS: The patient is a 61-year-old who presented with abdominal pain. It was more than likely due to acute pancreatitis, possibly cholelithiasis. She had just been seen by GI and Surgery, possible cholecystectomy as an outpatient. The patient has underlying COPD. The last time she was treated was 6 months ago for an acute exacerbation. She has never been hospitalized. She does not wear oxygen at home. She continues to smoke, presented with increasing shortness of breath over the last 2-3 days. She also had some what felt like a racing heartbeat. She has a cough productive of discolored sputum. She uses some metered dose inhalers at home. No hemoptysis. No fever, chills or night sweats. PAST MEDICAL HISTORY: 1. Chronic obstructive sleep apnea, recent new study. She is awaiting the results. 2. Polycythemia per the patient. She may possibly require a phlebotomy. 3. Obesity. 4. Obstructive sleep apnea. PAST SURGICAL HISTORY: Previous fibroid tumors. ALLERGIES: MORPHINE AND CODEINE. FAMILY HISTORY: Hypertension. SOCIAL HISTORY: She occasionally uses alcohol, smokes less than 1 pack of cigarettes a day. REVIEW OF SYSTEMS: As indicated above, otherwise, a 10-point system was reviewed and negative. CURRENT MEDICATIONS: List was reviewed. HOME MEDICATIONS: List was likewise reviewed. PHYSICAL EXAMINATION: GENERAL: Morbid obese individual in no respiratory distress. VITAL SIGNS: Stable. O2 saturation was greater than 92%, currently on liter. HEENT: Eyes, the sclerae were nonicteric. NECK: Jugular venous distention was not elevated. No lymphadenopathy. CHEST: Full expansion. LUNGS: Adequate airway flow, no wheezes. CARDIOVASCULAR: Regular rate and rhythm with S1, S2, no S3. ABDOMEN: Soft, nontender, nondistended. EXTREMITIES: No clubbing, cyanosis or pitting edema. NEUROLOGIC: The patient was awake, alert, following commands. A detailed neuro exam was not performed. LABORATORY DATA: Reviewed. Chest x-ray revealed no acute infiltrates. Electrolytes were normal. Troponin was not elevated. IMPRESSION: 1. Progressive dyspnea secondary to acute exacerbation of chronic obstructive pulmonary disease, suspect secondary pulmonary hypertension. 2. Secondary pulmonary hypertension related to untreated sleep apnea. 3. Obstructive sleep apnea. 4. Polycythemia per the patient's history. 5. Abdominal pain per GI. 6. Acute pancreatitis. PLAN: 1. From a pulmonary standpoint of view, the patient is stable enough to be discharged in the a.m. 2. Taper prednisone and continue doxycycline for a total of 7 days. 3. Metered dose inhalers. 4. Six-minute walk prior to discharge. 5. Follow up with her primary care doctor regarding her recent sleep study. 6. The patient was provided with my office number and she wishes to follow up with me regarding her COPD. I do appreciate the privilege in sharing in the patient's care. CHRISTIE CHENG MD DR: NANCY/[email or web address] JOB#: [id number] / [id number]
[2017-05-04 03:31] VITALS: BP 124/77
[2017-05-04] MEDS: HEPARIN PF for SUB-Q USE 5,000 UNIT/0.5 ML VIAL. SQ SCH (06:00)
[2017-05-04] MEDS: IV NORMAL SALINE 1000ML BAG 1,000 ML IV SCH (06:15)
--- NOTE | 2017-05-04 06:33 | PDOC ---
PULMONARY PROGRESS NOTES Subjective PT EATING BREAKFAST NO INCREASE SOA Vitals Vital Signs Date Time Temp Pulse Resp B/P (MAP) Pulse Ox O2 Delivery O2 Flow Rate FiO2 05/04/17 03:31 97.9 92 20 124/77 (93) 96 Nasal Cannula 2.0 97.9 ROS: No Nausea, No Chest Pain, No Increase Cough Lungs: Clear Cardiovascular: S1 Abdomen: Soft Neuro Exam: Alert Extremities: No Edema Skin: Warm Labs Laboratory Tests Test 05/02/17 12:30 05/02/17 12:32 05/02/17 17:31 05/02/17 20:40 Urine Collection Type Unknown Urine Color Alisha Urine Clarity Clear Urine pH 5.5 Urine Specific [place] >=1.030 Urine Protein 30 mg/dL (NEG-TRACE) Urine Glucose (UA) Negative mg/dL (NEG) Urine Ketones (Stick) Negative mg/dL (NEG) Urine Blood Small (NEG) Urine Nitrite Negative (NEG) Urine Bilirubin Small (NEG) Urine Urobilinogen Dipstick 0.2 mg/dL (0.2 mg/dL) Urine Leukocyte Esterase Negative (NEG) Urine RBC 3-5 /HPF (0-2) Urine WBC 0 /HPF (0-4) Urine Squamous Epithelial Cells Mod /LPF Urine Bacteria Few /HPF (0-FEW) Urine Mucus Marked /LPF Urine Opiates Screen Neg (NEG) Urine Methadone Screen Neg (NEG) Urine Barbiturates Neg (NEG) Urine Phencyclidine Screen Neg (NEG) Urine Amphetamine/Methamphetamine Neg (NEG) Urine Benzodiazepines Screen Neg (NEG) Urine Cocaine Screen Neg (NEG) Urine Cannabinoids Screen Neg (NEG) Urine Ethyl Alcohol Neg (NEG) White Blood Count 14.0 x10^3/uL (4.0-11.0) Red Blood Count 6.02 x10^6/uL (3.50-5.40) Hemoglobin 18.3 g/dL (12.0-15.5) Hematocrit 53.7 % (36.0-47.0) Mean Corpuscular Volume 89 fL (79-100) Mean Corpuscular Hemoglobin 31 pg (25-35) Mean Corpuscular Hemoglobin Concent 34 g/dL (31-37) Red Cell Distribution Width 13.6 % (11.5-14.5) Platelet Count 253 x10^3/uL (140-400) Neutrophils (%) (Auto) 80 % (31-73) Lymphocytes (%) (Auto) 12 % (24-48) Monocytes (%) (Auto) 8 % (0-9) Eosinophils (%) (Auto) 1 % (0-3) Basophils (%) (Auto) 0 % (0-3) Neutrophils # (Auto) 11.1 x10^3uL (1.8-7.7) Lymphocytes # (Auto) 1.6 x10^3/uL (1.0-4.8) Monocytes # (Auto) 1.1 x10^3/uL (0.0-1.1) Eosinophils # (Auto) 0.1 x10^3/uL (0.0-0.7) Basophils # (Auto) 0.1 x10^3/uL (0.0-0.2) Prothrombin Time 13.2 SEC (11.7-14.0) Prothromb Time International Ratio 1.1 (0.8-1.1) Activated Partial Thromboplast Time 26 SEC (24-38) Sodium Level 140 mmol/L (136-145) Potassium Level 3.9 mmol/L (3.5-5.1) Chloride Level 102 mmol/L (98-107) Carbon Dioxide Level 29 mmol/L (21-32) Anion Gap 9 (6-14) Blood Urea Nitrogen 12 mg/dL (7-20) Creatinine 0.8 mg/dL (0.6-1.0) Estimated GFR (Cockcroft-Gault) 72.7 BUN/Creatinine Ratio 15 (6-20) Glucose Level 171 mg/dL (70-99) Calcium Level 9.3 mg/dL (8.5-10.1) Magnesium Level 1.9 mg/dL (1.8-2.4) Total Bilirubin 0.5 mg/dL (0.2-1.0) Aspartate Amino Transf (AST/SGOT) 12 U/L (15-37) Alanine Aminotransferase (ALT/SGPT) 22 U/L (14-59) Alkaline Phosphatase 77 U/L (46-116) Creatine Kinase 46 U/L (26-192) Troponin I Quantitative < 0.017 ng/mL (0.000-0.055) MS-Scj-B-Type Natriuretic Peptide 115 pg/mL (0-124) Total Protein 7.6 g/dL (6.4-8.2) Albumin 3.5 g/dL (3.4-5.0) Albumin/Globulin Ratio 0.9 (1.0-1.7) Lipase 1273 U/L (73-393) Ethyl Alcohol Level < 10 mg/dL (0-10) Glucose (Fingerstick) 150 mg/dL (70-99) 127 mg/dL (70-99) Test 05/03/17 04:45 05/03/17 07:29 05/03/17 11:13 05/03/17 16:09 White Blood Count 9.5 x10^3/uL (4.0-11.0) Red Blood Count 5.26 x10^6/uL (3.50-5.40) Hemoglobin 16.1 g/dL (12.0-15.5) Hematocrit 48.0 % (36.0-47.0) Mean Corpuscular Volume 91 fL (79-100) Mean Corpuscular Hemoglobin 31 pg (25-35) Mean Corpuscular Hemoglobin Concent 34 g/dL (31-37) Red Cell Distribution Width 14.0 % (11.5-14.5) Platelet Count 207 x10^3/uL (140-400) Neutrophils (%) (Auto) 62 % (31-73) Lymphocytes (%) (Auto) 26 % (24-48) Monocytes (%) (Auto) 10 % (0-9) Eosinophils (%) (Auto) 2 % (0-3) Basophils (%) (Auto) 0 % (0-3) Neutrophils # (Auto) 5.9 x10^3uL (1.8-7.7) Lymphocytes # (Auto) 2.5 x10^3/uL (1.0-4.8) Monocytes # (Auto) 0.9 x10^3/uL (0.0-1.1) Eosinophils # (Auto) 0.2 x10^3/uL (0.0-0.7) Basophils # (Auto) 0.0 x10^3/uL (0.0-0.2) Sodium Level 143 mmol/L (136-145) Potassium Level 3.8 mmol/L (3.5-5.1) Chloride Level 107 mmol/L (98-107) Carbon Dioxide Level 29 mmol/L (21-32) Anion Gap 7 (6-14) Blood Urea Nitrogen 10 mg/dL (7-20) Creatinine 0.7 mg/dL (0.6-1.0) Estimated GFR (Cockcroft-Gault) 84.8 Glucose Level 115 mg/dL (70-99) Calcium Level 8.6 mg/dL (8.5-10.1) Lipase 427 U/L (73-393) Glucose (Fingerstick) 116 mg/dL (70-99) 123 mg/dL (70-99) 102 mg/dL (70-99) Test 05/03/17 20:37 Glucose (Fingerstick) 132 mg/dL (70-99) Laboratory Tests Test 05/03/17 07:29 05/03/17 11:13 05/03/17 16:09 05/03/17 20:37 Glucose (Fingerstick) 116 mg/dL (70-99) 123 mg/dL (70-99) 102 mg/dL (70-99) 132 mg/dL (70-99) Medications Active Scripts Medications Dose Route/Sig Max Daily Dose Days Date Category Hydrocodone-Apap 10-325 (Hydrocodone Bit/Acetaminophen) 1 Each Tablet 1 Tab PO PRN Q6HRS PRN 05/02/17 Reported Advair 500-50 Diskus (Fluticasone/Salmeterol) 1 Each Disk.w.dev 1 Each IH 10/11/13 Reported Paxil (Paroxetine Hcl) 10 Mg Tablet 10 Mg PO 10/11/13 Reported Impression . 1. Progressive dyspnea secondary to acute exacerbation of chronic obstructive pulmonary disease, suspect secondary pulmonary hypertension. 2. Secondary pulmonary hypertension related to untreated sleep apnea. 3. Obstructive sleep apnea. 4. Polycythemia per the patient's history. 5. Abdominal pain per GI. 6. Acute pancreatitis. CT ABD IMPRESSION: 1. Mild peripancreatic inflammation at the level of the pancreatic tail suggesting focal pancreatitis. 2. Pancreatic head calcifications probably due to prior pancreatitis. 3. Cholelithiasis. 4. 3.5 cm left adrenal mass. In the absence of prior studies to confirm stability, noncontrast CT follow-up or adrenal protocol MR scanning may be useful for further evaluation. Plan . DIET PER PCP IF D/C HOME PT GIVEN MY BUSINESS CARD TO CALL FOR FOLLOW UP 1. From a pulmonary standpoint of view, the patient is stable enough to be discharged in the a.m. 2. Taper prednisone and continue doxycycline for a total of 7 days. 3. Metered dose inhalers. 4. Six-minute walk prior to discharge. 5. Follow up with her primary care doctor regarding her recent sleep study. 6. The patient was provided with my office number and she wishes to follow up with me regarding her COPD. CHRISTIE CHENG MD May 04, 2017 06:33
[2017-05-04 07:00] VITALS: BP 134/72
[2017-05-04] MEDS: IPRATRPIUM/ALBUTEROL 0.5/2.5MG 3 ML NEBU. NEB SCH ×2 (07:05→11:53)
[2017-05-04] MEDS: DOXYCYCLINE HYCLATE 100 MG in IV DEXTROSE 5% 100 ML IV SCH (08:31)
[2017-05-04] MEDS: PARoxetine 10 MG TABLET PO SCH (08:31)
[2017-05-04 11:00] VITALS: BP 114/67
[2017-05-04] MEDS ORDERED: fentaNYL PF VIAL 100 MCG/2 ML VIAL IV PRN (11:30)
[2017-05-04] MEDS ORDERED: HYDROcodone/APAP 10/325 1 TAB TABLET PO PRN (11:30)
[2017-05-04] MEDS ORDERED: oxyCODONE/APAP 10/325 1 TAB TABLET PO PRN (11:30)
[2017-05-04] MEDS ORDERED: PRED-220 PO (12:09)
[2017-05-04] MEDS ORDERED: ATROVENT HFA12.9 GM IH (12:09)
--- NOTE | 2017-05-04 12:31 | PDOC ---
PROGRESS NOTES Subjective Subjective overall with gradual improvement, not much pain Objective Objective Vital Signs Date Time Temp Pulse Resp B/P (MAP) Pulse Ox O2 Delivery O2 Flow Rate FiO2 05/04/17 11:53 89 Room Air 05/04/17 11:00 98.1 87 20 114/67 (83) 98.1 05/04/17 08:00 1.0 Intake and Output 05/04/17 07:00 Intake Total 2650 ml Balance 2650 ml Intake Oral 1150 ml IV Total 1500 ml # Voids 6 Physical Exam Abdomen: Soft (minimally tender upper mid abdomen) Heart: Regular rate Extremities: No clubbing, No cyanosis General: Alert, Oriented X3 MUSCULOSKELETAL: No joint tenderness, No deformity Neuro: Normal gait, Normal speech Assessment Assessment Problems Medical Problems: (1) Dehydration Status: Acute (2) Leukocytosis Status: Acute Plan Plan of Care Plan for monica hutchinse per Dr Hackett; the patient wishes to be discharged and have surgery scheduled as outpatient. This is fine from our standpoint, she may call the office at [phone] to schedule future lap jose Comment Review of Relevant I have reviewed the following items idalia (where applicable) has been applied. Labs Laboratory Tests Test 05/02/17 12:30 05/02/17 12:32 05/02/17 17:31 05/02/17 20:40 Urine Collection Type Unknown Urine Color Alisha Urine Clarity Clear Urine pH 5.5 Urine Specific [place] >=1.030 Urine Protein 30 mg/dL (NEG-TRACE) Urine Glucose (UA) Negative mg/dL (NEG) Urine Ketones (Stick) Negative mg/dL (NEG) Urine Blood Small (NEG) Urine Nitrite Negative (NEG) Urine Bilirubin Small (NEG) Urine Urobilinogen Dipstick 0.2 mg/dL (0.2 mg/dL) Urine Leukocyte Esterase Negative (NEG) Urine RBC 3-5 /HPF (0-2) Urine WBC 0 /HPF (0-4) Urine Squamous Epithelial Cells Mod /LPF Urine Bacteria Few /HPF (0-FEW) Urine Mucus Marked /LPF Urine Opiates Screen Neg (NEG) Urine Methadone Screen Neg (NEG) Urine Barbiturates Neg (NEG) Urine Phencyclidine Screen Neg (NEG) Urine Amphetamine/Methamphetamine Neg (NEG) Urine Benzodiazepines Screen Neg (NEG) Urine Cocaine Screen Neg (NEG) Urine Cannabinoids Screen Neg (NEG) Urine Ethyl Alcohol Neg (NEG) White Blood Count 14.0 x10^3/uL (4.0-11.0) Red Blood Count 6.02 x10^6/uL (3.50-5.40) Hemoglobin 18.3 g/dL (12.0-15.5) Hematocrit 53.7 % (36.0-47.0) Mean Corpuscular Volume 89 fL (79-100) Mean Corpuscular Hemoglobin 31 pg (25-35) Mean Corpuscular Hemoglobin Concent 34 g/dL (31-37) Red Cell Distribution Width 13.6 % (11.5-14.5) Platelet Count 253 x10^3/uL (140-400) Neutrophils (%) (Auto) 80 % (31-73) Lymphocytes (%) (Auto) 12 % (24-48) Monocytes (%) (Auto) 8 % (0-9) Eosinophils (%) (Auto) 1 % (0-3) Basophils (%) (Auto) 0 % (0-3) Neutrophils # (Auto) 11.1 x10^3uL (1.8-7.7) Lymphocytes # (Auto) 1.6 x10^3/uL (1.0-4.8) Monocytes # (Auto) 1.1 x10^3/uL (0.0-1.1) Eosinophils # (Auto) 0.1 x10^3/uL (0.0-0.7) Basophils # (Auto) 0.1 x10^3/uL (0.0-0.2) Prothrombin Time 13.2 SEC (11.7-14.0) Prothromb Time International Ratio 1.1 (0.8-1.1) Activated Partial Thromboplast Time 26 SEC (24-38) Sodium Level 140 mmol/L (136-145) Potassium Level 3.9 mmol/L (3.5-5.1) Chloride Level 102 mmol/L (98-107) Carbon Dioxide Level 29 mmol/L (21-32) Anion Gap 9 (6-14) Blood Urea Nitrogen 12 mg/dL (7-20) Creatinine 0.8 mg/dL (0.6-1.0) Estimated GFR (Cockcroft-Gault) 72.7 BUN/Creatinine Ratio 15 (6-20) Glucose Level 171 mg/dL (70-99) Calcium Level 9.3 mg/dL (8.5-10.1) Magnesium Level 1.9 mg/dL (1.8-2.4) Total Bilirubin 0.5 mg/dL (0.2-1.0) Aspartate Amino Transf (AST/SGOT) 12 U/L (15-37) Alanine Aminotransferase (ALT/SGPT) 22 U/L (14-59) Alkaline Phosphatase 77 U/L (46-116) Creatine Kinase 46 U/L (26-192) Troponin I Quantitative < 0.017 ng/mL (0.000-0.055) BL-[id number]-Type Natriuretic Peptide 115 pg/mL (0-124) Total Protein 7.6 g/dL (6.4-8.2) Albumin 3.5 g/dL (3.4-5.0) Albumin/Globulin Ratio 0.9 (1.0-1.7) Lipase 1273 U/L (73-393) Ethyl Alcohol Level < 10 mg/dL (0-10) Glucose (Fingerstick) 150 mg/dL (70-99) 127 mg/dL (70-99) Test 05/03/17 04:45 05/03/17 07:29 05/03/17 11:13 05/03/17 16:09 White Blood Count 9.5 x10^3/uL (4.0-11.0) Red Blood Count 5.26 x10^6/uL (3.50-5.40) Hemoglobin 16.1 g/dL (12.0-15.5) Hematocrit 48.0 % (36.0-47.0) Mean Corpuscular Volume 91 fL (79-100) Mean Corpuscular Hemoglobin 31 pg (25-35) Mean Corpuscular Hemoglobin Concent 34 g/dL (31-37) Red Cell Distribution Width 14.0 % (11.5-14.5) Platelet Count 207 x10^3/uL (140-400) Neutrophils (%) (Auto) 62 % (31-73) Lymphocytes (%) (Auto) 26 % (24-48) Monocytes (%) (Auto) 10 % (0-9) Eosinophils (%) (Auto) 2 % (0-3) Basophils (%) (Auto) 0 % (0-3) Neutrophils # (Auto) 5.9 x10^3uL (1.8-7.7) Lymphocytes # (Auto) 2.5 x10^3/uL (1.0-4.8) Monocytes # (Auto) 0.9 x10^3/uL (0.0-1.1) Eosinophils # (Auto) 0.2 x10^3/uL (0.0-0.7) Basophils # (Auto) 0.0 x10^3/uL (0.0-0.2) Sodium Level 143 mmol/L (136-145) Potassium Level 3.8 mmol/L (3.5-5.1) Chloride Level 107 mmol/L (98-107) Carbon Dioxide Level 29 mmol/L (21-32) Anion Gap 7 (6-14) Blood Urea Nitrogen 10 mg/dL (7-20) Creatinine 0.7 mg/dL (0.6-1.0) Estimated GFR (Cockcroft-Gault) 84.8 Glucose Level 115 mg/dL (70-99) Calcium Level 8.6 mg/dL (8.5-10.1) Lipase 427 U/L (73-393) Glucose (Fingerstick) 116 mg/dL (70-99) 123 mg/dL (70-99) 102 mg/dL (70-99) Test 05/03/17 20:37 Glucose (Fingerstick) 132 mg/dL (70-99) Laboratory Tests Test 05/03/17 16:09 05/03/17 20:37 Glucose (Fingerstick) 102 mg/dL (70-99) 132 mg/dL (70-99) Medications Current Medications Ondansetron HCl (Zofran) 8 mg 1X ONCE IV Last administered on 05/02/17 12:54; Start 05/02/17 at 12:45; Stop 05/02/17 at 12:46; Status DC Sodium Chloride 1,000 ml @ 1,000 mls/hr 1X ONCE IV Last administered on 12:54; Start 05/02/17 at 12:45; Stop 05/02/17 at 13:44; Status DC Morphine Sulfate 5 mg 1X ONCE IV ; Start 05/02/17 at 12:45; Stop 05/02/17 at 12: 45; Status DC Albuterol/ Ipratropium (Duoneb) 3 ml 1X ONCE NEB Last administered on 13:17; Start 05/02/17 at 13:15; Stop 05/02/17 at 13:16; Status DC Fentanyl Citrate (Fentanyl 2ml Vial) 100 mcg 1X ONCE IV ; Start 05/02/17 at 13: 00; Stop 05/02/17 at 13:01; Status DC Iohexol (Omnipaque 300 Mg/ml) 75 ml 1X ONCE IV Last administered on 05/02/17 13:43; Start 05/02/17 at 13:15; Stop 05/02/17 at 13:16; Status DC Info (Do NOT chart on this entry -- for MONITORING) 1 each PRN DAILY PRN MC SEE COMMENTS; Start 05/02/17 at 13:15; Stop 05/04/17 at 13:14 Paroxetine HCl (Paxil) 10 mg DAILY PO Last administered on 05/04/17 08:31; Start 05/02/17 at 16:00 Pregabalin (Lyrica) 25 mg TID PO ; Start 05/02/17 at 15:15; Stop 05/02/17 at 17:27 ; Status DC Acetaminophen (Tylenol) 650 mg PRN Q6HRS PRN PO FEVER; Start 05/02/17 at 15:00 Ondansetron HCl (Zofran) 4 mg PRN Q6HRS PRN IV NAUSEA/VOMITING Last administered on 05/02/17 15:31; Start 05/02/17 at 15:00 Hydralazine HCl (Apresoline) 10 mg PRN Q4HRS PRN IVP ELEVATED BP, SEE COMMENTS ; Start 05/02/17 at 15:00 Docusate Sodium (Colace) 100 mg PRN DAILY PRN PO CONSTIPATION; Start 05/02/17 at 15:00 Fentanyl Citrate (Fentanyl 2ml Vial) 50 mcg PRN Q2HR PRN IV PAIN Last administered on 05/02/17 15:31; Start 05/02/17 at 15:00; Stop 05/04/17 at 11:24; Status DC Sodium Chloride 1,000 ml @ 150 mls/hr Q6H40M IV Last administered on 05/04/17 06:15; Start 05/02/17 at 15:00 Albuterol/ Ipratropium (Duoneb) 3 ml RTQID NEB Last administered on 05/04/17 11 :53; Start 05/02/17 at 16:00 Albuterol Sulfate (Ventolin Neb Soln) 2.5 mg PRN Q2HR PRN NEB SHORTNESS OF BREATH; Start 05/02/17 at 15:00 Guaifenesin (Mucinex) 600 mg BID PO Last administered on 05/04/17 08:31; Start 05/02/17 at 21:00 Doxycycline Hyclate 100 mg/ Dextrose 100 ml @ 50 mls/hr Q12HR IV Last administered on 05/03/17 21:11; Start 05/02/17 at 16:00 Heparin Sodium (Porcine) (Heparin Sq) 5,000 unit Q8HRS SQ Last administered on 05/02/17 17:45; Start 05/02/17 at 15:15 Famotidine (Pepcid) 20 mg QHS IVP Last administered on 05/03/17 21:12; Start at 21:00 Fentanyl Citrate (Fentanyl 2ml Vial) 25 mcg PRN Q2HR PRN IV PAIN Last administered on 05/02/17 22:04; Start 05/02/17 at 18:30 Sodium Chloride 500 ml @ 500 mls/hr 1X ONCE IV Last administered on 05/03/17 20:26; Start 05/03/17 at 20:00; Stop 05/03/17 at 20:59; Status DC Acetaminophen/ Hydrocodone Bitart (Lortab 10/325) 1 tab PRN Q6HRS PRN PO PAIN Last administered on 05/04/17 11:27; Start 05/04/17 at 11:30 Fentanyl Citrate (Fentanyl 2ml Vial) 100 mcg PRN Q2HR PRN IV PAIN; Start at 11:30 Oxycodone/ Acetaminophen (Percocet 10/325) 1 tab PRN Q4HRS PRN PO pain; Start 05/04/17 at 11:30 Active Scripts Active Atrovent Hfa (Ipratropium [place]) 12.9 Gm Hfa.aer.ad 1 Puff IH QID Prednisone 10 Mg Tablet 10 Mg PO UD Take 4 tablets by mouth daily for 3 days, then take 2 tablets by mouth daily for 3 days, then take 1 tablet by mouth daily x 3 days, then stop. Reported Hydrocodone-Apap 10-325 (Hydrocodone Bit/Acetaminophen) 1 Each Tablet 1 Tab PO PRN Q6HRS PRN Advair 500-50 Diskus (Fluticasone/Salmeterol) 1 Each Disk.w.dev 1 Each IH Paxil (Paroxetine Hcl) 10 Mg Tablet 10 Mg PO Vitals/I & O Vital Sign - Last 24 Hours 05/03/17 05/03/17 05/03/17 05/03/17 15:00 15:01 19:00 20:00 Temp 98.8 98.6 98.8 98.6 Pulse 79 84 Resp 18 20 B/P (MAP) 110/65 (80) 91/40 (57) Pulse Ox 92 92 93 O2 Delivery Nasal Cannula Nasal Cannula Room Air Nasal Cannula O2 Flow Rate 2.0 2.0 2.0 05/03/17 05/03/17 05/03/17 05/04/17 20:24 21:00 23:00 03:31 Temp 98.1 97.9 98.1 97.9 Pulse 89 93 92 Resp 18 20 B/P (MAP) 124/88 (100) 115/69 (84) 124/77 (93) Pulse Ox 91 95 96 O2 Delivery Room Air Room Air Nasal Cannula O2 Flow Rate 2.0 05/04/17 05/04/17 05/04/17 05/04/17 07:00 07:06 08:00 11:00 Temp 98.6 98.1 98.6 98.1 Pulse 98 87 Resp 20 20 B/P (MAP) 134/72 (92) 114/67 (83) Pulse Ox 90 94 88 O2 Delivery Nasal Cannula Nasal Cannula Nasal Cannula Room Air O2 Flow Rate 2.0 2.0 1.0 05/04/17 05/04/17 11:27 11:53 Pulse Ox 89 O2 Delivery Room Air Room Air Intake and Output 05/03/17 05/03/17 05/04/17 15:00 23:00 07:00 Intake Total 1800 ml 850 ml Balance 1800 ml 850 ml LAYA RIVERA MD May 04, 2017 12:31
[2017-05-04] MEDS ORDERED: DOXY100C2 PO (12:55)
--- NOTE | 2017-05-04 15:31 | PDOC3 ---
Discharge Summary Visit Information Date of Admission: May 02, 2017 Date of Discharge: May 04, 2017 Admitting Diagnosis: abd pain Final Diagnosis 1. From a pulmonary standpoint of view, the patient is stable enough to be discharged in the a.m. 2. Taper prednisone and continue doxycycline for a total of 7 days. 3. Metered dose inhalers. 4. Six-minute walk prior to discharge. 5. Follow up with her primary care doctor regarding her recent sleep study. 6. The patient was provided with my office number and she wishes to follow up with me regarding her COPD. Problems Medical Problems: (1) Dehydration Status: Acute (2) Leukocytosis Status: Acute Brief Hospital Course Allergies Allergies Coded Allergies Type Severity Reaction Last Updated Verified codeine Allergy Mild gi upset 05/03/17 Yes morphine Adverse Reaction Mild NAUSEA 05/02/17 Yes Vital Signs Vital Signs Date Time Temp Pulse Resp B/P (MAP) Pulse Ox O2 Delivery O2 Flow Rate FiO2 05/04/17 12:27 Room Air 05/04/17 11:53 89 05/04/17 11:00 98.1 87 20 114/67 (83) 98.1 05/04/17 08:00 1.0 Lab Results Laboratory Tests Test 05/02/17 17:31 05/02/17 20:40 05/03/17 04:45 05/03/17 07:29 Glucose (Fingerstick) 150 mg/dL (70-99) 127 mg/dL (70-99) 116 mg/dL (70-99) White Blood Count 9.5 x10^3/uL (4.0-11.0) Red Blood Count 5.26 x10^6/uL (3.50-5.40) Hemoglobin 16.1 g/dL (12.0-15.5) Hematocrit 48.0 % (36.0-47.0) Mean Corpuscular Volume 91 fL (79-100) Mean Corpuscular Hemoglobin 31 pg (25-35) Mean Corpuscular Hemoglobin Concent 34 g/dL (31-37) Red Cell Distribution Width 14.0 % (11.5-14.5) Platelet Count 207 x10^3/uL (140-400) Neutrophils (%) (Auto) 62 % (31-73) Lymphocytes (%) (Auto) 26 % (24-48) Monocytes (%) (Auto) 10 % (0-9) Eosinophils (%) (Auto) 2 % (0-3) Basophils (%) (Auto) 0 % (0-3) Neutrophils # (Auto) 5.9 x10^3uL (1.8-7.7) Lymphocytes # (Auto) 2.5 x10^3/uL (1.0-4.8) Monocytes # (Auto) 0.9 x10^3/uL (0.0-1.1) Eosinophils # (Auto) 0.2 x10^3/uL (0.0-0.7) Basophils # (Auto) 0.0 x10^3/uL (0.0-0.2) Sodium Level 143 mmol/L (136-145) Potassium Level 3.8 mmol/L (3.5-5.1) Chloride Level 107 mmol/L (98-107) Carbon Dioxide Level 29 mmol/L (21-32) Anion Gap 7 (6-14) Blood Urea Nitrogen 10 mg/dL (7-20) Creatinine 0.7 mg/dL (0.6-1.0) Estimated GFR (Cockcroft-Gault) 84.8 Glucose Level 115 mg/dL (70-99) Calcium Level 8.6 mg/dL (8.5-10.1) Lipase 427 U/L (73-393) Test 05/03/17 11:13 05/03/17 16:09 05/03/17 20:37 Glucose (Fingerstick) 123 mg/dL (70-99) 102 mg/dL (70-99) 132 mg/dL (70-99) Laboratory Tests Test 05/03/17 16:09 05/03/17 20:37 Glucose (Fingerstick) 102 mg/dL (70-99) 132 mg/dL (70-99) Brief Hospital Course Ms. Riojas is a 61 old admit with abdominal pain, acute pancreatitis, possibly cholelithiasis. She had just been seen by GI and Surgery, now planned cholecystectomy as an outpatient. COPD stable, cleard by Dr. Olmstead, her pain was better at 2 days, eating well, no acute, DC home in excellent condition CT abd IMPRESSION: 1. Mild peripancreatic inflammation at the level of the pancreatic tail suggesting focal pancreatitis. 2. Pancreatic head calcifications probably due to prior pancreatitis. 3. Cholelithiasis. 4. 3.5 cm left adrenal mass. In the absence of prior studies to confirm stability, noncontrast CT follow-up or adrenal protocol MR scanning may be useful for further evaluation. Discharge Information Condition at Discharge: Improved Follow Up: Weeks Disposition/Orders: D/C to Home Scheduled Doxycycline Hyclate (Doxycycline Hyclate), 1 CAP PO BID Ipratropium [place] (Atrovent Hfa), 1 PUFF IH QID Prednisone (Prednisone), 10 MG PO UD Scheduled PRN Hydrocodone Bit/Acetaminophen (Hydrocodone-Apap 10-325 ), 1 TAB PO PRN Q6HRS PRN for PAIN, (Reported) Miscellaneous Medications Fluticasone/Salmeterol (Advair 500-50 Diskus), 1 EACH IH, (Reported) Paroxetine Hcl (Paxil), 10 MG PO, (Reported) Discontinued Medications Pregabalin (Lyrica), 25 MG PO, (Reported) Patient Instructions Patient Instructions refill hydrocodone 10/325 #30, discussed, she has f/u for pain meds in one week > 30min NANCY LEMUS MD May 04, 2017 15:31
[2017-05-04] MEDS ORDERED: FAMOTIDINE 20 MG TABLET. PO SCH (21:00)
== END 2017-05-04 13:00 | disposition home or self-care (01) | DRG 438 ==
LOC: ER 12:11 → 4 NORTH 13:18
PROVIDERS: ADMIT Internal Medicine; ATTEND Internal Medicine
DX: K85.10 Biliary acute pancreatitis without necrosis or infection (principal); J96.00 Acute respiratory failure, unspecified whether with hypoxia or hypercapnia; J44.1 Chronic obstructive pulmonary disease with (acute) exacerbation; Z68.41 Body mass index [BMI] 40.0-44.9, adult; E86.0 Dehydration; G47.33 Obstructive sleep apnea (adult) (pediatric); F17.210 Nicotine dependence, cigarettes, uncomplicated; E66.01 Morbid (severe) obesity due to excess calories; M79.7 Fibromyalgia; K21.9 Gastro-esophageal reflux disease without esophagitis; D75.1 Secondary polycythemia; E27.8 Other specified disorders of adrenal gland; I27.2 Other secondary pulmonary hypertension; M32.9 Systemic lupus erythematosus, unspecified; I10 Essential (primary) hypertension; Z88.6 Allergy status to analgesic agent; Z82.49 Family history of ischemic heart disease and other diseases of the circulatory system
CPT/HCPCS: 36415; 71020; 74177; 80048; 80053; 80307; 81001; 82550; 82962; 83690; 83735; 83880; 84484; 85027; 85610; 85730; 93005; 94250; 94620; 94640; 94760; 96361; 96374; C1887; G0480; J2405; J3010; J3490; J7030; J7040; J7620; Q9967; S0028; 99285-25; G0479